=== PATIENT | male | born 1950 | race Caucasian/White ===

== ENCOUNTER 2016-08-19 16:38 | Observation (INO) | payer MEDICARE, MEDICAID, OTHER ==
[2016-08-19] MEDS ORDERED: Sodium Chloride 0.9% 2.5 ML Syringe FLUSH PRN (17:03)
[2016-08-19] MEDS ORDERED: Sodium Chloride 0.9% 10 ML Syringe FLUSH PRN (17:03)
--- NOTE | 2016-08-19 17:03 | EDM.PDOC ---
ED HISTORY OF PRESENT ILLNESS - General Chief Complaint: Respiratory Problem Stated Complaint: PT HAS DIFFICULTY BREATHING Time Seen by Provider: 08/19/16 16:58 Source of Information: Reports: Patient History Limitations: Reports: No limitations - History of Present Illness INITIAL COMMENTS - FREE TEXT/NARRATIVE: History of present illness: [] Patient was smoking with his nephew at home when he had a sudden onset of chest pain and shortness of breath. Patient recently had a pacemaker placed and has not had any problems since. Review of systems: As per history of present illness and below otherwise all systems reviewed and negative. Past medical history: As per history of present illness and as reviewed below otherwise noncontributory. Surgical history: As per history of present illness and as reviewed below otherwise noncontributory. Social history: No reported history of drug or alcohol abuse. Family history: As per history of present illness and as reviewed below otherwise noncontributory. Physical exam: General: Well developed, well nourished in NAD HEENT: Atraumatic, normocephalic, pupils reactive, negative for conjunctival pallor or scleral icterus, mucous membranes moist, throat clear, neck supple, nontender, trachea midline. Lungs: Clear to auscultation, breath sounds equal bilaterally, chest nontender. Heart: S1S2, regular, negative for clicks, rubs, or JVD. Abdomen: Soft, nondistended, nontender. Negative for masses or hepatosplenomegaly. Negative for costovertebral tenderness. Pelvis: Stable nontender. Genitourinary: Deferred. Rectal: Deferred. Extremities: Atraumatic, negative for cords or calf pain. Neurovascular unremarkable. Neuro: Awake, alert, oriented. Cranial nerves II through XII unremarkable. Cerebellum unremarkable. Motor and sensory unremarkable throughout. Exam nonfocal. Diagnostics: [] Labs, EKG and x-ray done d-dimer is elevated therefore CT angiogram was done. Therapeutics: [] Patient was given aspirin, nitroglycerin and a DuoNeb Impression: [] Acute onset of shortness of breath and chest pain Plan: [] Admit for further workup and rule out [place] Definitive disposition and diagnosis as appropriate pending reevaluation and review of above. - Related Data Allergies/ADRs: Allergies Allergy/AdvReac Type Severity Reaction Status Date / Time Penicillins Allergy Rash Verified 01/31/16 16:23 Home Meds: Home Meds ClonazePAM [KlonoPIN] 0.5 mg PO Q4H PRN 11/28/15 [History] Nitroglycerin [Nitrostat] 0.4 mg SL Q5M PRN 11/28/15 [History] Omeprazole 20 mg PO DAILY 11/28/15 [History] lamoTRIgine [Lamotrigine] 200 mg PO BID 11/28/15 [History] Albuterol Sulfate [Proair Respiclick] 2 puff IH ASDIRECTED PRN 01/31/16 [History ] Aspirin [Adult Low Dose Aspirin EC] 81 mg PO DAILY 01/31/16 [History] Hydrocodone/Acetaminophen [Hydrocodon-Acetaminophn 10-325] 1 tab PO QID PRN [History] Umeclidinium [place] [Incruse Ellipta] 1 puff IH DAILY 01/31/16 [History] atorvaSTATin [Lipitor] 20 mg PO DAILY 01/31/16 [History] Beclomethasone Dipropionate [Qvar] 1 inh IH BID 02/01/16 [History] Amantadine [Symmetrel] 100 mg PO BID 04/27/16 [History] Fluticasone Propionate [Flovent HFA 220 MCG] 0 mcg INH BID 04/27/16 [History] Docusate Sodium [Colace] 100 mg PO DAILY 08/19/16 [History] Lurasidone HCl [Latuda] 40 mg PO BID 08/19/16 [History] Tamsulosin [Flomax] 0.4 mg PO BIDPC 08/19/16 [History] Past Medical History HEENT History: Reports: None Cardiovascular History: Reports: Aneurysm, Arrhythmia, Hypertension, [place], Other ( see below) Other Cardiovascular History: prior obstructive coronary disease noted on angiogram about four years ago by patient history Respiratory History: Reports: Asthma, Other (see below) Other Respiratory History: on inhaler, but does not know why Gastrointestinal History: Reports: Other (see below) Other Gastrointestinal History: liver disease Genitourinary History: Reports: None Musculoskeletal History: Reports: Back pain, chronic, Other (see below) Other Musculoskeletal History: Chronic knee pain Neurological History: Reports: Alzheimers disease, Other (see below) Other Neuro History: being evaluated for parkinson's Psychiatric History: Reports: Anxiety, Depression Endocrine/Metabolic History: Reports: Diabetes, type II Hematologic History: Reports: None Immunologic History: Reports: None Oncologic (Cancer) History: Reports: Other (see below) Other Oncologic History: Testicular Cancer Dermatologic History: Reports: None - Infectious Disease History Infectious Disease History: Reports: None - Past Surgical History Head Surgeries/Procedures: Reports: None HEENT Surgical History: Reports: None Cardiovascular Surgical History: Reports: Coronary artery bypass GI Surgical History: Reports: None Male Surgical History: Reports: Other (see below) Other Male Surgeries/Procedures: Surgery for testicular cancer Endocrine Surgical History: Reports: None Neurological Surgical History: Reports: None Musculoskeletal Surgical History: Reports: Knee replacement Social & Family History - Family History Family Medical History: Noncontributory - Tobacco Use Smoking Status *Q: Current Every Day Smoker Years of Tobacco use: 15 Packs/Tins Daily: 0.2 Second Hand Smoke Exposure: No - Alcohol Use Days Per Week of Alcohol Use: 1 Number of Drinks Per Day: 1 Total Drinks Per Week: 1 - Recreational Drug Use Recreational Drug Use: No - Living Situation & Occupation Living situation: Reports: single, with family Occupation: disabled ED ROS GENERAL - Review of Systems Review Of Systems: See Below (See history of present illness) ED EXAM, GENERAL - Physical Exam Exam: See Below (See history of present illness) Course - Vital Signs Last Recorded V/S: Last Vital Signs Temp 36.6 C 08/20/16 04:22 Pulse 68 08/20/16 04:22 Resp 14 08/20/16 04:22 BP 102/58 L 08/20/16 04:22 Pulse Ox 96 08/20/16 04:22 - Orders/Labs/Meds Orders: Active Orders 24 hr Category Date Time Status RT Aerosol Therapy [RC] ASDIRECTED Care 08/19/16 17:07 Active CTA Chest W WO Contrast [Ang Chest] [CT] Stat Exams 08/19/16 18:01 Taken Chest 1V Frontal [CR] Stat Exams 08/19/16 17:03 Taken Sodium Chloride 0.9% [Normal Saline] 1,000 ml Med 08/19/16 18:45 Active IV ASDIRECTED Sodium Chloride 0.9% [Saline Flush] Med 08/19/16 17:03 Active 10 ml FLUSH ASDIRECTED PRN Sodium Chloride 0.9% [Saline Flush] Med 08/19/16 17:03 Active 2.5 ml FLUSH ASDIRECTED PRN Peripheral IV Insertion Adult [OM.PC] Stat Oth 08/19/16 17:03 Ordered Medication Orders Albuterol (Ventolin Hfa) 0 gm INH Q4H PRN PRN Reason: shortness of breath/wheezing Amantadine HCl (Symmetrel) 100 mg PO BID [facility] Last Admin: 08/19/16 22:22 Dose: 100 mg Atorvastatin Calcium (Lipitor) 20 mg PO DAILY [facility] Docusate Sodium (Colace) 100 mg PO DAILY [facility] Sodium Chloride (Normal Saline) 1,000 mls @ 999 mls/hr IV ASDIRECTED [facility] Last Admin: 08/19/16 19:17 Dose: 999 mls/hr Lamotrigine (Lamotrigine) 200 mg PO BID [facility] Last Admin: 08/19/16 22:22 Dose: 200 mg Nitroglycerin (Nitrostat) 0.4 mg SL Q5M PRN PRN Reason: Chest Pain Non-Formulary Medication (Beclomethasone Dipropionate [Qvar]) 1 inh IH BID [facility] Omeprazole (Omeprazole) 20 mg PO DAILY [facility] Ondansetron HCl (Zofran Odt) 4 mg PO Q4H PRN PRN Reason: nausea, able to take PO Own Medication -( Umeclidinium [place] ) 0 each INH DAILYRT [facility] Own Medication - (Latuda 80 Mg) 0 each PO BID [facility] Last Admin: 08/19/16 22:20 Dose: 1 each Sodium Chloride (Saline Flush) 10 ml FLUSH ASDIRECTED PRN PRN Reason: Keep Vein Open Last Admin: 08/19/16 17:27 Dose: 10 ml Sodium Chloride (Saline Flush) 2.5 ml FLUSH ASDIRECTED PRN PRN Reason: Keep Vein Open Last Admin: 08/19/16 17:27 Dose: 2.5 ml Tamsulosin [facility] ([facility]) [facility]: Laboratory Tests 08/19/16 08/19/16 08/19/16 Range/Units 17:14 17:14 17:14 WBC 5.16 (4.0-11.0) K/uL RBC 4.97 (4.50-5.90) M/uL Hgb 14.1 (13.0-17.0) g/dL Hct 42.9 (38.0-50.0) % MCV 86.3 (80.0-98.0) fL MCH 28.4 (27.0-32.0) pg MCHC 32.9 (31.0-37.0) g/dL RDW Std Deviation 42.7 (28.0-62.0) fl RDW Coeff of Lucero 14 (11.0-15.0) % Plt Count 127 L (150-400) K/uL MPV 8.90 (7.40-12.00) fL Neut % (Auto) 72.1 (48.0-80.0) % Lymph % (Auto) 22.9 (16.0-40.0) % [place] % (Auto) 3.1 (0.0-15.0) % Eos % (Auto) 1.7 (0.0-7.0) % Baso % (Auto) 0.2 (0.0-1.5) % Neut # 3.7 (1.4-5.7) K/uL Lymph # 1.2 (0.6-2.4) K/uL [place] # 0.2 (0.0-0.8) K/uL Eos # 0.1 (0.0-0.7) K/uL Baso # 0.0 (0.0-0.1) K/uL Nucleated RBC % 0.0 /100WBC Nucleated RBCs # 0 K/uL INR (0.86-1.11) APTT (18.6-31.3) SEC D-Dimer, Quantitative (0.0-0.52) mg/LFEU Sodium 141 (136-146) mmol/L Potassium 4.1 (3.5-5.1) mmol/L Chloride 107 (98-110) mmol/L Carbon Dioxide 20 L (21-31) mmol/L BUN 21 (6.0-23.0) mg/dL Creatinine 1.4 (0.6-1.5) mg/dL Est Cr Clr Drug Dosing 52.14 mL/min Estimated GFR (MDRD) 50.4 ml/min Glucose 143 H (60-110) mg/dL Calcium 9.9 (8.8-10.8) mg/dL Total Bilirubin 0.5 (0.1-1.5) mg/dL AST 16 (5-40) IU/L ALT 15 (8-54) IU/L Alkaline Phosphatase 115 (40-150) Troponin I < 0.10 (0.0-0.29) NG/ML B-Natriuretic Peptide (<100) PG/ML Total Protein 7.5 (6.0-8.0) g/dL Albumin 4.4 (3.4-4.8) g/dL Globulin 3.1 (2.0-3.5) g/dL Albumin/Globulin Ratio 1.4 (1.3-2.8) 08/19/16 08/19/16 08/19/16 Range/Units 17:14 17:14 17:14 WBC (4.0-11.0) K/uL RBC (4.50-5.90) M/uL Hgb (13.0-17.0) g/dL Hct (38.0-50.0) % MCV (80.0-98.0) fL MCH (27.0-32.0) pg MCHC (31.0-37.0) g/dL RDW Std Deviation (28.0-62.0) fl RDW Coeff of [place] (11.0-15.0) % Plt Count (150-400) K/uL MPV (7.40-12.00) fL Neut % (Auto) (48.0-80.0) % Lymph % (Auto) (16.0-40.0) % [place] % (Auto) (0.0-15.0) % Eos % (Auto) (0.0-7.0) % Baso % (Auto) (0.0-1.5) % Neut # (1.4-5.7) K/uL Lymph # (0.6-2.4) K/uL [place] # (0.0-0.8) K/uL Eos # (0.0-0.7) K/uL Baso # (0.0-0.1) K/uL Nucleated RBC % /100WBC Nucleated RBCs # K/uL INR 1.05 (0.86-1.11) APTT 28.0 (18.6-31.3) SEC D-Dimer, Quantitative 0.58 H (0.0-0.52) mg/LFEU Sodium (136-146) mmol/L Potassium (3.5-5.1) mmol/L Chloride (98-110) mmol/L Carbon Dioxide (21-31) mmol/L BUN (6.0-23.0) mg/dL Creatinine (0.6-1.5) mg/dL Est Cr Clr Drug Dosing mL/min Estimated GFR (MDRD) ml/min Glucose (60-110) mg/dL Calcium (8.8-10.8) mg/dL Total Bilirubin (0.1-1.5) mg/dL AST (5-40) IU/L ALT (8-54) IU/L Alkaline Phosphatase (40-150) Troponin I (0.0-0.29) NG/ML B-Natriuretic Peptide < 15 (<100) PG/ML Total Protein (6.0-8.0) g/dL Albumin (3.4-4.8) g/dL Globulin (2.0-3.5) g/dL Albumin/Globulin Ratio (1.3-2.8) Meds: Medications Generic Name Dose Route Start Last Admin Trade Name Freq PRN Reason Stop Dose Admin Albuterol 0 gm 08/19/16 21:07 Ventolin Hfa INH Q4H PRN shortness of breath/wheezing Amantadine HCl 100 mg 08/19/16 21:00 08/19/16 22:22 Symmetrel PO 100 mg BID ISAIAH Administration Atorvastatin Calcium 20 mg 08/20/16 09:00 Lipitor PO DAILY [facility] Docusate Sodium 100 mg 08/20/16 09:00 Colace PO DAILY [facility] Sodium Chloride 1,000 mls @ 999 mls/hr 08/19/16 18:45 08/19/16 19:17 Normal Saline IV 999 mls/hr ASDIRECTED ISAIAH Administration Lamotrigine 200 mg 08/19/16 21:00 08/19/16 22:22 Lamotrigine PO 200 mg BID ISAIAH Administration Nitroglycerin 0.4 mg 08/19/16 20:47 Nitrostat SL Q5M PRN Chest Pain Non-Formulary Medication 1 inh 08/19/16 21:00 Beclomethasone Dipropionate [Qvar] IH BID [facility] Omeprazole 20 mg 08/20/16 09:00 Omeprazole PO DAILY [facility] Ondansetron HCl 4 mg 08/19/16 20:49 Zofran Odt PO Q4H PRN nausea, able to take PO Own Medication -( 0 each 08/20/16 06:00 Umeclidinium [place] INH ) DAILYRT ISAIAH Own Medication - 0 each 08/19/16 22:00 08/19/16 22:20 Latuda 80 Mg PO 1 each BID ISAIAH Administration Sodium Chloride 10 ml 08/19/16 17:03 08/19/16 17:27 Saline Flush FLUSH 10 ml ASDIRECTED PRN Administration Keep Vein Open Sodium Chloride 2.5 ml 08/19/16 17:03 08/19/16 17:27 Saline Flush FLUSH 2.5 ml ASDIRECTED PRN Administration Keep Vein Open Tamsulosin HCl 0.4 mg 08/20/16 08:30 Flomax PO BIDPC ISAIAH Discontinued Medications Generic Name Dose Route Start Last Admin Trade Name Freq PRN Reason Stop Dose Admin Albuterol/Ipratropium 3 ml 08/19/16 17:07 08/19/16 17:20 Duoneb 3.0-0.5 Mg/3 Ml NEB 08/19/16 17:08 3 ml ONETIME ONE Administration Aspirin 324 mg 08/19/16 17:06 08/19/16 17:26 Aspirin PO 08/19/16 17:07 324 mg ONETIME ONE Administration Iodixanol 50 ml 08/19/16 18:44 08/19/16 18:44 Visipaque 320 IVPUSH 08/19/16 18:45 50 ml ONETIME STA Administration Nitroglycerin 0.4 mg 08/19/16 17:06 08/19/16 17:26 Nitrostat SL 08/19/16 17:17 0.4 mg Q5M PRN Administration Chest Pain Departure - Departure Time of Disposition: 05:00 Disposition: Admitted As Inpatient 64 Condition: good Clinical Impression: COPD (chronic obstructive pulmonary disease) Qualifiers: COPD type: COPD with acute exacerbation Qualified Code(s): J44.1 - Chronic obstructive pulmonary disease with (acute) exacerbation Chest pain Qualifiers: Chest pain type: unspecified Qualified Code(s): R07.9 - Chest pain, unspecified - My Orders Last 24 Hours: My Active Orders 08/19/16 17:03 Chest 1V Frontal [CR] Stat Sodium Chloride 0.9% [Saline Flush] 10 ml FLUSH ASDIRECTED PRN Sodium Chloride 0.9% [Saline Flush] 2.5 ml FLUSH ASDIRECTED PRN Peripheral IV Insertion Adult [OM.PC] Stat 08/19/16 17:07 RT Aerosol Therapy [RC] ASDIRECTED 08/19/16 18:01 CTA Chest W WO Contrast [Ang Chest] [CT] Stat 08/19/16 18:45 Sodium Chloride 0.9% [Normal Saline] 1,000 ml IV ASDIRECTED - Assessment/Plan Last 24 Hours: My Active Orders 08/19/16 17:03 Chest 1V Frontal [CR] Stat Sodium Chloride 0.9% [Saline Flush] 10 ml FLUSH ASDIRECTED PRN Sodium Chloride 0.9% [Saline Flush] 2.5 ml FLUSH ASDIRECTED PRN Peripheral IV Insertion Adult [OM.PC] Stat 08/19/16 17:07 RT Aerosol Therapy [RC] ASDIRECTED 08/19/16 18:01 CTA Chest W WO Contrast [Ang Chest] [CT] Stat 08/19/16 18:45 Sodium Chloride 0.9% [Normal Saline] 1,000 ml IV ASDIRECTED
[2016-08-19] MEDS ORDERED: Nitroglycerin 0.4 MG Tab.SL SL PRN ×2 (17:06→20:47)
[2016-08-19] MEDS ORDERED: Aspirin 81 MG Tab.Chew PO ONE (17:06)
[2016-08-19] MEDS ORDERED: Albuterol/Ipratropium 3.0-0.5 MG/3 ML Neb Soln NEB ONE (17:07)
[2016-08-19] MEDS ORDERED: Iodixanol 652 MG/ML 50 ML Vial IVPUSH STA (18:44)
[2016-08-19] MEDS ORDERED: Sodium Chloride 0.9% 1,000 ML IV SCH (18:45)
[2016-08-19] MEDS ORDERED: Ondansetron 4 MG Tab.DIS PO PRN (20:49)
--- NOTE | 2016-08-19 20:57 | PCM.HP ---
H&P History of Present Illness - General Admit Problem/Dx: Admission Diagnosis/Problem Admission Diagnosis/Problem Chest pain - History of Present Illness Initial Comments - Free Text/Narative: 66 yo male with pmh of CAD, COPD, arrhythmia with pacemaker, and ascending aortic aneurysm who presented with acute onset of chest pain. He describes it as substernal radiated to the jaw with associated shortness of breath. HE received nitro, ASA, O2 via NC and duonebs in the ED with resolution of his symptoms. Due to elevated D-dimer CT scan of chest was taken which showed no pulmonary embolism, ascending aortic aneurysm measuring 4.7 cm. chest Pain Score (Numeric/FACES): 9 - Related Data Allergies/Adverse Reactions: Allergies Allergy/AdvReac Type Severity Reaction Status Date / Time Penicillins Allergy Rash Verified 01/31/16 16:23 Home Medications: Home Meds ClonazePAM [KlonoPIN] 0.5 mg PO Q4H PRN 11/28/15 [History] Nitroglycerin [Nitrostat] 0.4 mg SL Q5M PRN 11/28/15 [History] Omeprazole 20 mg PO DAILY 11/28/15 [History] Albuterol Sulfate [Proair Respiclick] 2 puff IH Q4H PRN 01/31/16 [History] Aspirin [Adult Low Dose Aspirin EC] 81 mg PO DAILY 01/31/16 [History] Hydrocodone/Acetaminophen [Hydrocodon-Acetaminophn 10-325] 1 tab PO QID PRN [History] Umeclidinium [place] [Incruse Ellipta] 1 puff IH DAILY 01/31/16 [History] atorvaSTATin [Lipitor] 20 mg PO BEDTIME 01/31/16 [History] Amantadine [Symmetrel] 100 mg PO BID 04/27/16 [History] Fluticasone Propionate [Flovent HFA 220 MCG] 2 inh INH BID 04/27/16 [History] Docusate Sodium [Colace] 100 mg PO DAILY 08/19/16 [History] Lurasidone HCl [Latuda] 40 mg PO BID 08/19/16 [History] Tamsulosin [Flomax] 0.4 mg PO BIDPC 08/19/16 [History] Past Medical History - Past Health History Medical/Surgical History: Denies Medical/Surgical History HEENT History: Reports: None Cardiovascular History: Reports: Aneurysm, Arrhythmia, Hypertension, [place], Other ( see below) Other Cardiovascular History: prior obstructive coronary disease noted on angiogram about four years ago by patient history Respiratory History: Reports: Asthma, Other (see below) Other Respiratory History: on inhaler, but does not know why Gastrointestinal History: Reports: Other (see below) Other Gastrointestinal History: liver disease Genitourinary History: Reports: None Musculoskeletal History: Reports: Back pain, chronic, Other (see below) Other Musculoskeletal History: Chronic knee pain Neurological History: Reports: Alzheimers disease, Other (see below) Other Neuro History: being evaluated for parkinson's Psychiatric History: Reports: Anxiety, Depression Endocrine/Metabolic History: Reports: Diabetes, type II Hematologic History: Reports: None Immunologic History: Reports: None Oncologic (Cancer) History: Reports: Other (see below) Other Oncologic History: Testicular Cancer Dermatologic History: Reports: None - Infectious Disease History Infectious Disease History: Reports: None - Past Surgical History Head Surgeries/Procedures: Reports: None HEENT Surgical History: Reports: None Cardiovascular Surgical History: Reports: Coronary artery bypass GI Surgical History: Reports: None Male Surgical History: Reports: Other (see below) Other Male Surgeries/Procedures: Surgery for testicular cancer Endocrine Surgical History: Reports: None Neurological Surgical History: Reports: None Musculoskeletal Surgical History: Reports: Knee replacement Social & Family History - Family History Family Medical History: Noncontributory - Tobacco Use Smoking Status *Q: Current Every Day Smoker Years of Tobacco use: 15 Packs/Tins Daily: 0.2 Second Hand Smoke Exposure: No - Caffeine Use Caffeine Use: Reports: Coffee - Alcohol Use Days Per Week of Alcohol Use: 1 Number of Drinks Per Day: 1 Total Drinks Per Week: 1 - Recreational Drug Use Recreational Drug Use: No - Living Situation & Occupation Living situation: Reports: single, with family Occupation: disabled H&P Review of Systems - Review of Systems: Review Of Systems: See Below General: Reports: no symptoms HEENT: Reports: no symptoms Pulmonary: Reports: no symptoms Cardiovascular: Reports: no symptoms Gastrointestinal: Reports: No symptoms Genitourinary: Reports: no symptoms Musculoskeletal: Reports: no symptoms Skin: Reports: no symptoms Psychiatric: Reports: no symptoms Neurological: Reports: no symptoms Hematologic/Lymphatic: Reports: no symptoms Immunologic: Reports: no symptoms Exam - Exam Exam: See Below - Vital Signs Vital Signs: Last Vital Signs Temp 36.4 C 08/19/16 16:50 Pulse 69 08/19/16 19:19 Resp 17 08/19/16 19:19 BP 108/60 08/19/16 19:19 Pulse Ox 98 08/19/16 19:19 Weight: 101.151 kg - Exam General: alert, oriented Neck: supple, trachea midline, 2 Lungs: Clear to auscultation, Normal respiratory effort Cardiovascular: regular rate, regular rhythm. No: systolic murmur, diastolic murmur Abdomen: normal bowel sounds, soft Extremities: normal inspection Skin: warm, dry, intact Neurological: No: focal deficit - Patient Data Result Diagrams: 08/19/16 17:14 08/20/16 06:29 EKG INTERPRETATION Rate (beats/min): 82 QRS: RBBB *Q Meaningful Use (ADM) - VTE *Q VTE Criteria *Q: - Stroke *Q Stroke Criteria *Q: - AMI *Q AMI Criteria *Q: Problem List Initiated/Reviewed/Updated: Yes Orders Last 24hrs: Active Orders 24 hr Category Date Time Status TROPONIN I [CHEM] Q6H Lab 08/19/16 23:00 Ordered TROPONIN I [CHEM] Q6H Lab 08/20/16 05:00 Ordered Albuterol Sulfate [Proair Respiclick] Med 08/19/16 20:47 Ordered 2 puff IH ASDIRECTED PRN Amantadine [Symmetrel] Med 08/19/16 21:00 Ordered 100 mg PO BID Beclomethasone Dipropionate [Qvar] Med 08/19/16 21:00 Ordered 1 inh IH BID Docusate Sodium [Colace] Med 08/20/16 09:00 Ordered 100 mg PO DAILY Lurasidone HCl [Latuda] Med 08/19/16 21:00 Ordered 40 mg PO BID Nitroglycerin [Nitrostat] Med 08/19/16 20:47 Ordered 0.4 mg SL Q5M PRN Omeprazole Med 08/20/16 09:00 Ordered 20 mg PO DAILY Tamsulosin [Flomax] Med 08/20/16 08:30 Ordered 0.4 mg PO BIDPC Umeclidinium [place] Med 08/20/16 09:00 Ordered 1 puff IH DAILY atorvaSTATin [Lipitor] Med 08/20/16 09:00 Ordered 20 mg PO DAILY lamoTRIgine Med 08/19/16 21:00 Ordered 200 mg PO BID Medication Orders Amantadine HCl (Symmetrel) 100 mg PO BID [facility] Atorvastatin Calcium (Lipitor) 20 mg PO DAILY [facility] Docusate Sodium (Colace) 100 mg PO DAILY [facility] Sodium Chloride (Normal Saline) 1,000 mls @ 999 mls/hr IV ASDIRECTED [facility] Last Admin: 08/19/16 19:17 Dose: 999 mls/hr Lamotrigine (Lamotrigine) 200 mg PO BID [facility] Nitroglycerin (Nitrostat) 0.4 mg SL Q5M PRN PRN Reason: Chest Pain Non-Formulary Medication (Lurasidone Hcl [Latuda]) 40 mg PO BID [facility] Non-Formulary Medication (Umeclidinium [place]) 1 puff IH DAILY [facility] Non-Formulary Medication (Beclomethasone Dipropionate [Qvar]) 1 inh IH BID [facility] Non-Formulary Medication (Albuterol Sulfate [Proair Respiclick]) 2 puff IH ASDIRECTED PRN PRN Reason: shortness of breath/wheezing Omeprazole (Omeprazole) 20 mg PO DAILY [facility] Sodium Chloride (Saline Flush) 10 ml FLUSH ASDIRECTED PRN PRN Reason: Keep Vein Open Last Admin: 08/19/16 17:27 Dose: 10 ml Sodium Chloride (Saline Flush) 2.5 ml FLUSH ASDIRECTED PRN PRN Reason: Keep Vein Open Last Admin: 08/19/16 17:27 Dose: 2.5 ml Tamsulosin [facility] ([facility]omax) [facility] Assessment/Plan Comment:: 66 yo male admitted for chest pain. Will rule out for acute coronary syndrome.
[2016-08-19] MEDS ORDERED: BECLOMETHASONE DIPROPIONATE INH SCH (21:00)
[2016-08-19] MEDS ORDERED: Albuterol 8 GM Inhaler INH PRN (21:07)
[2016-08-19] MEDS ORDERED: LATUDA 40 MG PO SCH (21:15)
[2016-08-19] MEDS: LATUDA 80 MG PO SCH (22:20)
[2016-08-19] MEDS: lamoTRIgine 100 MG Tab PO SCH (22:22)
[2016-08-19] MEDS: Amantadine 100 MG Cap PO SCH (22:22)
[2016-08-20] MEDS ORDERED: INCRUSE ELLIPTA INH SCH (06:00)
[2016-08-20 07:04] LABS: CHLORIDE,CL 110 mmol/L (98-110); SODIUM,NA 142 mmol/L (136-146)
[2016-08-20] MEDS: Amantadine 100 MG Cap PO SCH (08:07)
[2016-08-20] MEDS: LATUDA 80 MG PO SCH (08:07)
[2016-08-20] MEDS ORDERED: ClonazePAM 0.5 MG Tab PO PRN (08:07)
[2016-08-20] MEDS ORDERED: Acetaminophen/HYDROcodone 325-10 MG Tab PO PRN (08:07)
[2016-08-20] MEDS: lamoTRIgine 100 MG Tab PO SCH (08:07)
[2016-08-20] MEDS ORDERED: Tamsulosin 0.4 MG Cap.ER PO SCH (08:30)
[2016-08-20] MEDS ORDERED: Omeprazole 20 MG Cap.CR PO SCH (09:00)
[2016-08-20] MEDS ORDERED: Docusate Sodium 100 MG Cap PO SCH (09:00)
[2016-08-20] MEDS ORDERED: Fluticasone Propionate 220 MCG/Puff 12 GM Inhaler INH SCH (09:00)
[2016-08-20] MEDS ORDERED: atorvaSTATin 20 MG Tab PO SCH (09:00)
[2016-08-20] MEDS ORDERED: Aspirin 81 MG Tab.EC PO SCH (09:00)
--- NOTE | 2016-08-20 11:35 | PCM.PN ---
- General Info Date of Service: 08/20/16 Admission Dx/Problem (Free Text): Admission Diagnosis/Problem Admission Diagnosis/Problem Chest pain Subjective Update: Doing well this morning. Has no more complaints of chest pain or SOB. Has no complaints. Did consult Dr. Aguilar regarding admission. Functional Status: Reports: pain controlled, tolerating diet, ambulating, urinating - Review of Systems General: Reports: no symptoms. Denies: fever Pulmonary: Reports: no symptoms. Denies: shortness of breath Cardiovascular: Reports: no symptoms. Denies: chest pain, palpitations Gastrointestinal: Reports: No symptoms. Denies: Abdominal pain, Nausea, Vomiting Genitourinary: Reports: no symptoms - Patient Data Vitals - most recent: Last Vital Signs Temp 97.2 F 08/20/16 08:00 Pulse 62 08/20/16 08:00 Resp 16 08/20/16 08:00 BP 110/60 08/20/16 08:00 Pulse Ox 97 08/20/16 08:00 Weight - most recent: 101.151 kg I&O - last 24 hours: Intake & Output 08/19/16 08/20/16 08/20/16 22:59 06:59 14:59 Intake Total 440 Output Total 1050 Balance -610 Lab Results last 24 hrs: Laboratory Results - last 24 hr 08/19/16 08/20/16 08/20/16 Range/Units 23:05 06:29 06:29 Sodium 142 (136-146) mmol/L Potassium 4.3 (3.5-5.1) mmol/L Chloride 110 (98-110) mmol/L Carbon Dioxide 22 (21-31) mmol/L BUN 16 (6.0-23.0) mg/dL Creatinine 1.1 (0.6-1.5) mg/dL Est Cr Clr Drug Dosing 68.45 mL/min Estimated GFR (MDRD) > 60.0 ml/min Glucose 96 (60-110) mg/dL Calcium 8.8 (8.8-10.8) mg/dL Troponin I < 0.10 < 0.10 (0.0-0.29) NG/ML Med Orders - Current: Current Medications Acetaminophen/Hydrocodone Bitart ([place] 325-10 Mg) 1 tab PO QID PRN PRN Reason: Pain Albuterol (Ventolin Hfa) 0 gm INH Q4H PRN PRN Reason: shortness of breath/wheezing Amantadine HCl (Symmetrel) 100 mg PO BID [facility] Last Admin: 08/20/16 08:07 Dose: 100 mg Aspirin (Halfprin) 81 mg PO DAILY [facility] Last Admin: 08/20/16 08:38 Dose: 81 mg Atorvastatin Calcium (Lipitor) 20 mg PO DAILY [facility] Last Admin: 08/20/16 08:07 Dose: 20 mg Clonazepam (Klonopin) 0.5 mg PO Q4H PRN PRN Reason: Anxiety Docusate Sodium (Colace) 100 mg PO DAILY [facility] Last Admin: 08/20/16 08:07 Dose: 100 mg Fluticasone Propionate (Flovent Hfa 220 Mcg) 0 gm INH BIDRT [facility] Last Admin: 08/20/16 08:19 Dose: 1 puff Sodium Chloride (Normal Saline) 1,000 mls @ 999 mls/hr IV ASDIRECTED [facility] Last Admin: 08/19/16 19:17 Dose: 999 mls/hr Nitroglycerin (Nitrostat) 0.4 mg SL Q5M PRN PRN Reason: Chest Pain Omeprazole (Omeprazole) 20 mg PO DAILY [facility] Last Admin: 08/20/16 08:07 Dose: 20 mg Ondansetron HCl (Zofran Odt) 4 mg PO Q4H PRN PRN Reason: nausea, able to take PO Incruse Ellipta ( Umeclidinium [place] ) 0 each INH DAILYRT [facility] Last Admin: 08/20/16 07:29 Dose: Not Given Own Medication - (Latuda 80 Mg) 0 each PO BID [facility] Last Admin: 08/20/16 08:07 Dose: 40 each Sodium Chloride (Saline Flush) 10 ml FLUSH ASDIRECTED PRN PRN Reason: Keep Vein Open Last Admin: 08/19/16 17:27 Dose: 10 ml Sodium Chloride (Saline Flush) 2.5 ml FLUSH ASDIRECTED PRN PRN Reason: Keep Vein Open Last Admin: 08/19/16 17:27 Dose: 2.5 ml Tamsulosin HCl (Flomax) [facility] [facility] Last Admin: 08/20/16 08:07 Dose: 0.4 mg Discontinued Medications Albuterol/Ipratropium (Duoneb 3.0-0.5 Mg/3 Ml) 3 ml NEB ONETIME ONE Stop: 08/19/16 17:08 Last Admin: 08/19/16 17:20 Dose: 3 ml Aspirin (Aspirin) 324 mg PO ONETIME ONE Stop: 08/19/16 17:07 Last Admin: 08/19/16 17:26 Dose: 324 mg Iodixanol (Visipaque 320) 50 ml IVPUSH ONETIME STA Stop: 08/19/16 18:45 Last Admin: 08/19/16 18:44 Dose: 50 ml Lamotrigine (Lamotrigine) 200 mg PO BID [facility] Last Admin: 08/20/16 08:07 Dose: 200 mg Nitroglycerin (Nitrostat) 0.4 mg SL Q5M PRN PRN Reason: Chest Pain Stop: 08/19/16 17:17 Last Admin: 08/19/16 17:26 Dose: 0.4 mg Beclomethasone Dipropionate [Qvar] 1 Inh 1 each INH BID [facility] Last Admin: 08/20/16 07:28 Dose: Not Given - Exam General: alert, oriented, cooperative Lungs: Clear to auscultation, Normal respiratory effort. No: Crackles, Rhonchi , Wheezing Cardiovascular: regular rate, regular rhythm. No: no murmurs Abdomen: bowel sounds present, soft, no tenderness, no distension Extremities: no edema, normal pulses Psy/Mental Status: alert, normal affect, normal mood - Problem List & Annotations (1) Chest pain SNOMED Code(s): 92670794 Code(s): R07.9 - CHEST PAIN, UNSPECIFIED Status: Acute Current Visit: Yes Qualifiers: Chest pain type: unspecified Qualified Code(s): R07.9 - Chest pain, unspecified (2) Pacemaker SNOMED Code(s): 046831439, 527147311 Code(s): Z95.0 - PRESENCE OF CARDIAC PACEMAKER Status: Chronic Current Visit: Yes Annotation/Comment:: placed 07/18/2016 (3) COPD (chronic obstructive pulmonary disease) SNOMED Code(s): 69250933 Code(s): J44.9 - CHRONIC OBSTRUCTIVE PULMONARY DISEASE, UNSPECIFIED Status : Chronic Current Visit: Yes Qualifiers: COPD type: unspecified COPD Qualified Code(s): J44.9 - Chronic obstructive pulmonary disease, unspecified (4) CAD (coronary artery disease) SNOMED Code(s): 28363643 Code(s): I25.10 - ATHSCL HEART DISEASE OF [place] CORONARY ARTERY W/O ANG PCTRS Status: Chronic Current Visit: No - Problem List Review Problem List Initiated/Reviewed/Updated: Yes - My Orders Last 24 Hours: My Active Orders 08/20/16 08:05 Consult to Physician [CONS] Routine 08/20/16 08:06 Notify Provider Consults [RC] ASDIRECTED 08/20/16 08:07 Acetaminophen/HYDROcodone [[place] 325-10 MG] 1 tab PO QID PRN ClonazePAM [KlonoPIN] 0.5 mg PO Q4H PRN 08/20/16 09:00 Aspirin [Halfprin] 81 mg PO DAILY Fluticasone Propionate [Flovent HFA 220 MCG] 0 gm INH BIDRT - Plan Plan:: 66 yo male admitted for chest pain. 1. Chest pain: Troponins negative. Did note ascending aortic aneurysm has increased in size since December 2015(4.4 to 4.7 now). Potential cause for pain? Newly placed pacemaker, 07/18/2016. Will consult Dr. Aguilar, Cardiology for further recommendations. 2. COPD: Could be cause of some SOB on admission. Feeling better now, restarted inhalers. 3. CAD: Continue ASA and Atrovastatin. VTE: SCDs Dispo: pending recommendations for Dr. Aguilar.
--- NOTE | 2016-08-20 11:43 | PCM.CONS ---
<Lori Patel - Last Filed: 08/21/16 10:25> H&P History of Present Illness - General Date of Service: 08/20/16 (3095) Admit Problem/Dx: Admission Diagnosis/Problem Admission Diagnosis/Problem Chest pain Source of Information: Patient History Limitations: Reports: No limitations - History of Present Illness Initial Comments - Free Text/Narative: 66 year old male with pmh of CAD, COPD, arrhythmia with pacemaker placed on , and ascending aortic aneurysm who presented to the ED with acute onset of SOB with jaw and chest pain. According to patient he had just walked back into the house from the shop with his nephew a distance of about 50 feet, when he suddenly developed SOB that progressively got worse (with no relief even with use of rescue inhaler) to the point of gasping for air. He also voices substernal chest pain which radiated to his right shoulder blade and jaw pain ( which was worse on the left more than the right which made it difficult to speak ). He describes pain as dull, constant stabbing pain 9/10 on pain scale. He voices symptoms lasted for about 3-4hours. In the ED he was given Nitro, ASA, oxygen via NC and duoneb treatments which resolved his symptoms. His serial troponin were negative, but his D-dimer was elevated at 0.58, thus CT scan of chest done due to elevated d-dimeer which showed no PE, but did show ascending aortic aneurysm measuring 4.7cm (measured 4.4cm in December 2015). EKG showed no ST segment changes but showed RBBB. CXR was normal. Admitted to inpatient status for further workup to rule out ACS. Symptom Onset Date: 08/19/16 Duration of Symptoms: Reports: Hour(s): (lasted about 3-4 hours), Constant, Getting worse Location: Reports: chest Quality: Reports: Dull, Stabbing Improves with: Reports: None Worsens with: Reports: None Associated Symptoms: Reports: chest pain (9/10 in ER pain is 3/10 now with movement pain is mainly in his back and knees), shortness of breath chest Pain Score (Numeric/FACES): 3 (back and knee pain with movement rated as 3 denies chest pain or SOB.) - Related Data Allergies/Adverse Reactions: Allergies Allergy/AdvReac Type Severity Reaction Status Date / Time Penicillins Allergy Rash Verified 01/31/16 16:23 Home Medications: Home Meds ClonazePAM [KlonoPIN] 0.5 mg PO Q4H PRN 11/28/15 [History] Nitroglycerin [Nitrostat] 0.4 mg SL Q5M PRN 11/28/15 [History] Omeprazole 20 mg PO DAILY 11/28/15 [History] Albuterol Sulfate [Proair Respiclick] 2 puff IH Q4H PRN 01/31/16 [History] Aspirin [Adult Low Dose Aspirin EC] 81 mg PO DAILY 01/31/16 [History] Hydrocodone/Acetaminophen [Hydrocodon-Acetaminophn 10-325] 1 tab PO QID PRN [History] Umeclidinium [place] [Incruse Ellipta] 1 puff IH DAILY 01/31/16 [History] atorvaSTATin [Lipitor] 20 mg PO BEDTIME 01/31/16 [History] Amantadine [Symmetrel] 100 mg PO BID 04/27/16 [History] Fluticasone Propionate [Flovent HFA 220 MCG] 2 inh INH BID 04/27/16 [History] Docusate Sodium [Colace] 100 mg PO DAILY 08/19/16 [History] Lurasidone HCl [Latuda] 40 mg PO BID 08/19/16 [History] Tamsulosin [Flomax] 0.4 mg PO BIDPC 08/19/16 [History] Past Medical History - Past Health History Medical/Surgical History: Denies Medical/Surgical History HEENT History: Reports: None Cardiovascular History: Reports: Aneurysm, Arrhythmia, Hypertension, RI, Other ( see below) Other Cardiovascular History: prior obstructive coronary disease noted on angiogram about four years ago by patient history Respiratory History: Reports: Asthma, Other (see below) Other Respiratory History: on inhaler, but does not know why Gastrointestinal History: Reports: Other (see below) Other Gastrointestinal History: liver disease Genitourinary History: Reports: None Musculoskeletal History: Reports: Back pain, chronic, Other (see below) Other Musculoskeletal History: Chronic knee pain Neurological History: Reports: Alzheimers disease, Other (see below) Other Neuro History: being evaluated for parkinson's Psychiatric History: Reports: Anxiety, Depression Endocrine/Metabolic History: Reports: Diabetes, type II Hematologic History: Reports: None Immunologic History: Reports: None Oncologic (Cancer) History: Reports: Other (see below) Other Oncologic History: Testicular Cancer Dermatologic History: Reports: None - Infectious Disease History Infectious Disease History: Reports: None - Past Surgical History Head Surgeries/Procedures: Reports: None HEENT Surgical History: Reports: None Cardiovascular Surgical History: Reports: Coronary artery bypass GI Surgical History: Reports: None Male Surgical History: Reports: Other (see below) Other Male Surgeries/Procedures: Surgery for testicular cancer Endocrine Surgical History: Reports: None Neurological Surgical History: Reports: None Musculoskeletal Surgical History: Reports: Knee replacement Social & Family History - Family History Family Medical History: Noncontributory - Tobacco Use Smoking Status *Q: Current Every Day Smoker Years of Tobacco use: 15 Packs/Tins Daily: 0.2 Second Hand Smoke Exposure: No - Caffeine Use Caffeine Use: Reports: Coffee - Alcohol Use Days Per Week of Alcohol Use: 1 Number of Drinks Per Day: 1 Total Drinks Per Week: 1 - Recreational Drug Use Recreational Drug Use: No - Living Situation & Occupation Living situation: Reports: single, with family Occupation: disabled H&P Review of Systems - Review of Systems: Review Of Systems: See Below General: Reports: weakness, fatigue, other (was cold and clammy with episode of SOB and chest pain). Denies: fever, chills, malaise, decreased appetite, weight loss, weight gain HEENT: Reports: glasses (wears prescription glasses which is currently broken, has readers at bedside ), headaches (denies headache or pressure but voices head felt "weird inside"), other (head hurt but not headache). Denies: sore throat, visual changes Pulmonary: Reports: Shortness of Breath Cardiovascular: Reports: chest pain, lightheadedness Gastrointestinal: Denies: Abdominal pain, Nausea, Vomiting Genitourinary: Denies: dysuria, frequency, burning, urgency Musculoskeletal: Reports: shoulder pain (right shoulder blade pain on 08/19/16) Skin: Denies: cyanosis, pallor, diaphoresis, bruising, erythema Psychiatric: Reports: anxiety (history of anxiety has medication for it) Neurological: Reports: Weakness. Denies: Dizziness, Numbness, Tingling Hematologic/Lymphatic: Reports: no symptoms Immunologic: Reports: no symptoms Exam - Exam Exam: See Below - Vital Signs Vital Signs: Last Vital Signs Temp 36.2 C 08/20/16 08:00 Pulse 62 08/20/16 08:00 Resp 16 08/20/16 08:00 BP 110/60 08/20/16 08:00 Pulse Ox 97 08/20/16 08:00 Weight: 101.151 kg - Exam General: alert, oriented, cooperative HEENT: Conjunctiva clear, Mucosa moist & pink, Posterior pharynx clear, Pupils equal, Pupils reactive, TMs clear, PERRLA Neck: supple, trachea midline, full range of motion. No: lymphadenopathy, JVD Lungs: Clear to auscultation, Normal respiratory effort. No: Crackles, Rhonchi , Wheezing Cardiovascular: regular rate, regular rhythm Abdomen: normal bowel sounds, soft, tenderness (tenderness with palpation in mid epigastric region). No: distention, guarding, rigidity, rebound, hernia, mass (Male) Exam: Deferred Rectal (Males) Exam: Deferred Back Exam: normal inspection, full range of motion Extremities: normal pulses. No: clubbing, cyanosis, calf tenderness, edema, increased warmth Skin: warm, dry, intact Neurological: strength equal bilateral, normal speech, normal tone, sensation intact Neuro Extensive - Mental Status: alert, oriented x3, normal mood/affect, normal cognition, memory intact Neuro Extensive - Motor, Sensory, Reflexes: normal gait Psychiatric: alert, normal affect, normal mood - Patient Data Lab Results last 24 hrs: Laboratory Results - last 24 hr 08/19/16 08/20/16 08/20/16 Range/Units 23:05 06:29 06:29 Sodium 142 (136-146) mmol/L Potassium 4.3 (3.5-5.1) mmol/L Chloride 110 (98-110) mmol/L Carbon Dioxide 22 (21-31) mmol/L BUN 16 (6.0-23.0) mg/dL Creatinine 1.1 (0.6-1.5) mg/dL Est Cr Clr Drug Dosing 68.45 mL/min Estimated GFR (MDRD) > 60.0 ml/min Glucose 96 (60-110) mg/dL Calcium 8.8 (8.8-10.8) mg/dL Troponin I < 0.10 < 0.10 (0.0-0.29) NG/ML Result Diagrams: 08/19/16 17:14 08/20/16 06:29 Consult PN Assessment/Plan Procedures: Procedures AIRWAY INHALATION TREATMENT (01/31/16) ASSAY OF AMYLASE (12/30/15) ASSAY OF FOLIC ACID SERUM (01/31/16) ASSAY OF LIPASE (12/30/15) ASSAY OF MAGNESIUM (01/31/16) ASSAY OF PHOSPHORUS (01/31/16) ASSAY OF TROPONIN QUANT (01/05/16) ASSAY THYROID STIM HORMONE (01/31/16) CHEST X-RAY 1 VIEW FRONTAL (12/30/15) CHEST X-RAY 2VW FRONTAL&LATL (04/27/16) COMPLETE CBC W/AUTO DIFF WBC (04/27/16) COMPREHEN METABOLIC PANEL (04/27/16) CT ABD & PELV W/CONTRAST (12/30/15) CT HEAD/BRAIN W/O DYE (01/31/16) CT THORAX W/DYE (12/30/15) DRAIN/INJ JOINT/BURSA W/O US (04/24/16) ELECTROCARDIOGRAM TRACING (02/08/16) EMERGENCY DEPT VISIT (04/27/16) EMERGENCY DEPT VISIT (01/31/16) EVALUATE PT USE OF INHALER (04/27/16) EXTRACRANIAL BILAT STUDY (01/31/16) GLUCOSE BLOOD TEST (01/31/16) HYDRATE IV INFUSION ADD-ON (12/30/15) HYDRATION IV INFUSION INIT (12/30/15) LIPID PANEL (01/31/16) METABOLIC PANEL TOTAL CA (01/31/16) MRI BRAIN STEM W/O & W/DYE (01/31/16) MRI LUMBAR SPINE W/O & W/DYE (01/31/16) OFFICE/OUTPATIENT VISIT NEW (04/24/16) OFFICE/OUTPATIENT VISIT NEW (04/24/16) PROTHROMBIN TIME (01/31/16) PT EVALUATION (04/04/16) ROUTINE VENIPUNCTURE (04/27/16) THERAPEUTIC EXERCISES (05/02/16) TTE W/DOPPLER COMPLETE (01/31/16) URINALYSIS AUTO W/SCOPE (01/31/16) VITAMIN B-12 (01/31/16) X-RAY EXAM KNEE 4 OR MORE (04/24/16) (1) Chest pain SNOMED Code(s): 22263530 Code(s): R07.9 - CHEST PAIN, UNSPECIFIED Qualifiers: Chest pain type: unspecified Qualified Code(s): R07.9 - Chest pain, unspecified Assessment:: This is a 66 year old male who presented to the ED with acute onset SOB and chest pain that started on Saturday08-19-16. He has a PMH of CAD, COPD, arrhythmia with pacemaker placed on 07/18/16, and ascending aortic aneurysm. He voices SOB got progressively worse and was unrelieved by rescue inhaler Flovent. Denies abdominal pain, and nausea or vomiting. In the ED he was given Nitro, ASA, oxygen via NC and duoneb treatments which resolved his symptoms. Serial troponins were negative, but his D-dimer was elevated at 0.58, thus CT scan of chest was done which showed no PE, but did show ascending aortic aneurysm measuring 4.7cm (measured 4.4cm in December 2015). EKG showed no ST segment changes but showed RBBB. CXR was normal. Admitted to inpatient status for further workup to rule out ACS. Patient on cardiac monitoring on admission. Vitals temp-36.2, Pulse-76 regular, BP-110/60, RR-16, O2-97%RA 1. Chest pain His symptoms of chest and jaw pain and SOB were resolved after Nitro, ASA, Oxygen via NC, and duoneb treatment in ED. Pain was described as dull, constant stabbing pain in the substernal area with radiation to jaw and right shoulder which may suggest ACS, which was ruled out with CT of chest, serial negative troponins and resolution of symptoms with administration of Nitro in ED. CT of chest showed no PE but ascending aortic aneurysm measuring 4.7cm. EKG showed no ST segment changes but RBBB. CXR showed no inflitrates or pleural effusion, and with no current respiratory infection ruling out pulmonary cause of chest pain. Chest pain was not GI in nature due to symptoms described. Patient is currently denying chest pain and feels much better today. Recommendation is to followup in clinic for further workup with stress test and based on results followup with cardiac angiography. 2. Ascending aortic Aneurysm Aneurysm measured 4.4cm in December of 2015 measures 4.7cm on 08-19-16. Life style modification including smoking cessation is very important in managing aneurysms. Patient is current 1 pack/day smoker discussed with him the importance of smoking cessation as smoking increases aneursym formation and expansion, patient was very receptive, has been using a nicotine patch since admission and has information for [email or web address]. Also statin use is recommended to decrease LDL to goal. Patient is currently on Lipitor 20 mg daily. Another recommendation is to manage BP patient BP is currently under control at 110/60 mmHg. My recommendation is to followup with cardiothoracic surgeon in [place] for consultation and followup for possible surgery. Patient was informed of this. Copies of CT and EKG reports and patient history will be sent to office in [place]. 3. Arrhythmia with pacemaker patient is a recent pacemaker placement on 07/18/16 and has had no problems with pacemaker. Pacemaker was checked today at bedside. Results were normal with 15 year battery life left. Recommendation is to follow-up with pacemaker checks per guidelines. 4. Asthma, COPD According to patient this is the first time he is being diagnosed with COPD he has a history of Asthma. Patient is currently on an anticholinergic inhaler Incruse Ellipta 1 puff qd and inhaled corticosteriod inhaler of Flovent HFA as rescue inhaler if needed. Recommend continuing on medication regimen as ordered. <Ravinder Aguilar - Last Filed: 08/22/16 08:39> H&P History of Present Illness - General Admit Problem/Dx: Admission Diagnosis/Problem Admission Diagnosis/Problem Chest pain Exam - Vital Signs Vital Signs: Last Vital Signs Temp 37.1 C 08/20/16 12:00 Pulse 65 08/20/16 12:00 Resp 16 08/20/16 12:00 BP 113/56 L 08/20/16 12:00 Pulse Ox 98 08/20/16 12:00 - Exam Peripheral Pulses: 2+: posterior tibial (L), posterior tibial (R), dorsalis pedis (L), dorsalis pedis (R) Skin: other (pacemaker incision scar left chest wall) - Patient Data Result Diagrams: 08/19/16 17:14 08/20/16 06:29 Consult PN Assessment/Plan Procedures: Procedures AIRWAY INHALATION TREATMENT (01/31/16) ASSAY OF AMYLASE (12/30/15) ASSAY OF FOLIC ACID SERUM (01/31/16) ASSAY OF LIPASE (12/30/15) ASSAY OF MAGNESIUM (01/31/16) ASSAY OF PHOSPHORUS (01/31/16) ASSAY OF TROPONIN QUANT (01/05/16) ASSAY THYROID STIM HORMONE (01/31/16) CHEST X-RAY 1 VIEW FRONTAL (12/30/15) CHEST X-RAY 2VW FRONTAL&LATL (04/27/16) COMPLETE CBC W/AUTO DIFF WBC (04/27/16) COMPREHEN METABOLIC PANEL (04/27/16) CT ABD & PELV W/CONTRAST (12/30/15) CT HEAD/BRAIN W/O DYE (01/31/16) CT THORAX W/DYE (12/30/15) DRAIN/INJ JOINT/BURSA W/O US (04/24/16) ELECTROCARDIOGRAM TRACING (02/08/16) EMERGENCY DEPT VISIT (04/27/16) EMERGENCY DEPT VISIT (01/31/16) EVALUATE PT USE OF INHALER (04/27/16) EXTRACRANIAL BILAT STUDY (01/31/16) GLUCOSE BLOOD TEST (01/31/16) HYDRATE IV INFUSION ADD-ON (12/30/15) HYDRATION IV INFUSION INIT (12/30/15) LIPID PANEL (01/31/16) METABOLIC PANEL TOTAL CA (01/31/16) MRI BRAIN STEM W/O & W/DYE (01/31/16) MRI LUMBAR SPINE W/O & W/DYE (01/31/16) OFFICE/OUTPATIENT VISIT NEW (04/24/16) OFFICE/OUTPATIENT VISIT NEW (04/24/16) PROTHROMBIN TIME (01/31/16) PT EVALUATION (04/04/16) ROUTINE VENIPUNCTURE (04/27/16) THERAPEUTIC EXERCISES (05/02/16) TTE W/DOPPLER COMPLETE (01/31/16) URINALYSIS AUTO W/SCOPE (01/31/16) VITAMIN B-12 (01/31/16) X-RAY EXAM KNEE 4 OR MORE (04/24/16) Problem List Initiated/Reviewed/Updated: Yes Plan: I discussed and agreed with H&P assessment [employer] note 65M bipolar disorder, with recurrent syncope, non obstructive CAD s/p dual chamber PPM with chest pain, now trop was negative, PPM showed no arrhythmia, however due to elevated DDimer, CT angiography was ordered, showed worsening ascending aortic aneurism from 4.4 in 12/2015 to 4.7 in 08/2016. Patient has good DP PT pulse, FP, I believe patient do not need surgery for now, but I think patient will need close monitoring, and I would shcedule him to see CT surgery TONY after discharged.
[2016-08-20 12:11] VITALS: BP 113/56
--- NOTE | 2016-08-20 13:43 | PCM.DCSUM1 ---
Discharge Summary - Hospital Course Brief History: This 66 year old male with pmh of CAD, COPD, arrhythmia with pacemaker placed 07/18/2016, and ascending aortic aneurysm who presented with acute onset of chest pain and SOB. He describes it as substernal, it radiated to the jaw with associated shortness of breath. He received nitro, ASA, O2 via NC and duonebs in the ED with resolution of his symptoms. Due to elevated D- dimer CT scan of chest was taken which showed no pulmonary embolism, ascending aortic aneurysm measuring 4.7 cm, which is a noted increased from December 2015 when it measured 4.4 cm. He was admitted for chest pain R/O ACS. - Discharge Data Discharge Date: 08/20/16 Discharge Disposition: Home, Self-Care 01 Condition: Good - Discharge Diagnosis/Problem(s) (1) Chest pain SNOMED Code(s): 43020317 ICD Code: R07.9 - CHEST PAIN, UNSPECIFIED Status: Acute Current Visit: Yes Qualifiers: Chest pain type: unspecified Qualified Code(s): R07.9 - Chest pain, unspecified (2) Pacemaker SNOMED Code(s): 283040279, 424667452 ICD Code: Z95.0 - PRESENCE OF CARDIAC PACEMAKER Status: Chronic Current Visit: Yes Problem Details: placed 07/18/2016 (3) COPD (chronic obstructive pulmonary disease) SNOMED Code(s): 67265240 ICD Code: J44.9 - CHRONIC OBSTRUCTIVE PULMONARY DISEASE, UNSPECIFIED Status : Chronic Current Visit: Yes Qualifiers: COPD type: unspecified COPD Qualified Code(s): J44.9 - Chronic obstructive pulmonary disease, unspecified (4) CAD (coronary artery disease) SNOMED Code(s): 47567162 ICD Code: I25.10 - ATHSCL HEART DISEASE OF [place] CORONARY ARTERY W/O ANG PCTRS Status: Chronic Current Visit: No - Patient Summary/Data Consults: Consultations 08/20/16 08:05 Consult to Physician [CONS] Routine - Patient Instructions Diet: Heart Healthy Diet Activity: No Strenuous Activities Showering/Bathing: October Shower Notify Provider of: Fever, Increased Pain, Swelling and Redness, Drainage, Nausea and/or Vomiting - Discharge Plan Home Medications: Home Meds ClonazePAM [KlonoPIN] 0.5 mg PO Q4H PRN 11/28/15 [History] Nitroglycerin [Nitrostat] 0.4 mg SL Q5M PRN 11/28/15 [History] Omeprazole 20 mg PO DAILY 11/28/15 [History] Albuterol Sulfate [Proair Respiclick] 2 puff IH Q4H PRN 01/31/16 [History] Aspirin [Adult Low Dose Aspirin EC] 81 mg PO DAILY 01/31/16 [History] Hydrocodone/Acetaminophen [Hydrocodon-Acetaminophn 10-325] 1 tab PO QID PRN [History] Umeclidinium [place] [Incruse Ellipta] 1 puff IH DAILY 01/31/16 [History] atorvaSTATin [Lipitor] 20 mg PO BEDTIME 01/31/16 [History] Amantadine [Symmetrel] 100 mg PO BID 04/27/16 [History] Fluticasone Propionate [Flovent HFA 220 MCG] 2 inh INH BID 04/27/16 [History] Docusate Sodium [Colace] 100 mg PO DAILY 08/19/16 [History] Lurasidone HCl [Latuda] 40 mg PO BID 08/19/16 [History] Tamsulosin [Flomax] 0.4 mg PO BIDPC 08/19/16 [History] Patient Handouts: Chronic Obstructive Pulmonary Disease Exacerbation, Easy-to- Read, Nonspecific Chest Pain, [id number] Referrals: [facility] [Outside] [facility] [Outside] Ravinder Aguilar MD [Physician] - 09/05/16 9:00 am - Discharge Summary/Plan Comment DC Time >30 min.: No Discharge Summary/Plan Comment: Discharge diagnoses: Chest pain-resolved ACS ruled out Increasing ascending aortic aneurysm (4.7 cm) CAD COPD Pacemaker secondary to arrhythmia Sohail was admitted and monitored overnight on telemetry. Telemetry showed no changes, SR BBB continued. No ST segment changes. Troponins were negative, ACS ruled out. Dr. Aguilar was consulted due to recent pacemaker placement as well as increasing ascending aortic aneurysm. Please see Sydnee Aguilar's consultation. He recommended follow up with cardiothoracic surgeon for increasing ascending aortic aneurysm, we will arrange this appointment. He also interrogated his pacemaker. He has not had any further chest pain or SOB. He is feeling well today. Will discharge home with follow up with Dr. Aguilar as well as cardiothoracic surgeon in [place], [place] at first available appointment. He has follow up August 31 for post-op follow up for pacemaker. Continue all home medications as previously prescribed. - General Info Date of Service: 08/20/16 Admission Dx/Problem (Free Text: Admission Diagnosis/Problem Admission Diagnosis/Problem Chest pain Subjective Update: Doing well this morning. Has no more complaints of chest pain or SOB. Has no complaints. Would like to go home today Functional Status: Reports: pain controlled, tolerating diet, ambulating, urinating - Review of Systems General: Reports: no symptoms HEENT: Reports: no symptoms Pulmonary: Reports: no symptoms Cardiovascular: Reports: no symptoms Gastrointestinal: Reports: No symptoms Genitourinary: Reports: no symptoms Musculoskeletal: Reports: no symptoms Neurological: Reports: no symptoms Psychiatric: Reports: no symptoms - Patient Data Vitals - Most Recent: Last Vital Signs Temp 98.8 F 08/20/16 12:00 Pulse 65 08/20/16 12:00 Resp 16 08/20/16 12:00 BP 113/56 L 08/20/16 12:00 Pulse Ox 98 08/20/16 12:00 Weight - Most Recent: 101.151 kg I&O - Last 24 hours: Intake & Output 08/19/16 08/20/16 08/20/16 22:59 06:59 14:59 Intake Total 440 Output Total 1050 Balance -610 Lab Results - Last 24 hrs: Laboratory Results - last 24 hr 08/19/16 08/20/16 08/20/16 Range/Units 23:05 06:29 06:29 Sodium 142 (136-146) mmol/L Potassium 4.3 (3.5-5.1) mmol/L Chloride 110 (98-110) mmol/L Carbon Dioxide 22 (21-31) mmol/L BUN 16 (6.0-23.0) mg/dL Creatinine 1.1 (0.6-1.5) mg/dL Est Cr Clr Drug Dosing 68.45 mL/min Estimated GFR (MDRD) > 60.0 ml/min Glucose 96 (60-110) mg/dL Calcium 8.8 (8.8-10.8) mg/dL Troponin I < 0.10 < 0.10 (0.0-0.29) NG/ML Med Orders - Current: Current Medications Acetaminophen/Hydrocodone Bitart ([place] 325-10 Mg) 1 tab PO QID PRN PRN Reason: Pain Albuterol (Ventolin Hfa) 0 gm INH Q4H PRN PRN Reason: shortness of breath/wheezing Amantadine HCl (Symmetrel) 100 mg PO BID [facility] Last Admin: 08/20/16 08:07 Dose: 100 mg Aspirin (Halfprin) 81 mg PO DAILY [facility] Last Admin: 08/20/16 08:38 Dose: 81 mg Atorvastatin Calcium (Lipitor) 20 mg PO DAILY [facility] Last Admin: 08/20/16 08:07 Dose: 20 mg Clonazepam (Klonopin) 0.5 mg PO Q4H PRN PRN Reason: Anxiety Docusate Sodium (Colace) 100 mg PO DAILY [facility] Last Admin: 08/20/16 08:07 Dose: 100 mg Fluticasone Propionate (Flovent Hfa 220 Mcg) 0 gm INH BIDRT [facility] Last Admin: 08/20/16 08:19 Dose: 1 puff Sodium Chloride (Normal Saline) 1,000 mls @ 999 mls/hr IV ASDIRECTED [facility] Last Admin: 08/19/16 19:17 Dose: 999 mls/hr Nitroglycerin (Nitrostat) 0.4 mg SL Q5M PRN PRN Reason: Chest Pain Omeprazole (Omeprazole) 20 mg PO DAILY [facility] Last Admin: 08/20/16 08:07 Dose: 20 mg Ondansetron HCl (Zofran Odt) 4 mg PO Q4H PRN PRN Reason: nausea, able to take PO Incruse Ellipta ( Umeclidinium [place] ) 0 each INH DAILYRT [facility] Last Admin: 08/20/16 07:29 Dose: Not Given Own Medication - (Latuda 80 Mg) 0 each PO BID [facility] Last Admin: 08/20/16 08:07 Dose: 40 each Sodium Chloride (Saline Flush) 10 ml FLUSH ASDIRECTED PRN PRN Reason: Keep Vein Open Last Admin: 08/19/16 17:27 Dose: 10 ml Sodium Chloride (Saline Flush) 2.5 ml FLUSH ASDIRECTED PRN PRN Reason: Keep Vein Open Last Admin: 08/19/16 17:27 Dose: 2.5 ml Tamsulosin [facility] Admin: 08/20/16 08:07 Dose: 0.4 mg Discontinued Medications Albuterol/Ipratropium (Duoneb 3.0-0.5 Mg/3 Ml) 3 ml NEB ONETIME ONE Stop: 08/19/16 17:08 Last Admin: 08/19/16 17:20 Dose: 3 ml Aspirin (Aspirin) 324 mg PO ONETIME ONE Stop: 08/19/16 17:07 Last Admin: 08/19/16 17:26 Dose: 324 mg Iodixanol ([place]ip[place] 320) 50 ml IVPUSH ONETIME STA Stop: 08/19/16 18:45 Last Admin: 08/19/16 18:44 Dose: 50 ml Lamotrigine (Lamotrigine) 200 mg PO BID [facility] Last Admin: 08/20/16 08:07 Dose: 200 mg Nitroglycerin (Nitrostat) 0.4 mg SL Q5M PRN PRN Reason: Chest Pain Stop: 08/19/16 17:17 Last Admin: 08/19/16 17:26 Dose: 0.4 mg Beclomethasone Dipropionate [Qvar] 1 Inh 1 each INH BID [facility] Last Admin: 08/20/16 07:28 Dose: Not Given - Exam General: Reports: alert, oriented, cooperative Neck: Reports: supple Lungs: Reports: Clear to auscultation, Normal respiratory effort Cardiovascular: Reports: regular rate, regular rhythm Abdomen: Reports: bowel sounds present, soft, no tenderness, no distension *Q Meaningful Use (DIS) - VTE *Q VTE Criteria *Q: - Stroke *Q Stroke Criteria *Q: - AMI *Q AMI Criteria *Q:
--- NOTE | 2016-08-20 21:45 | CR ---
EXAM DATE: 08/19/16 PATIENT'S AGE: 66 Patient: MILES LAL Facility: [place], [place] Site . Site : 1950 Study: XRay Chest [id number]/12/[id number] 5:35:08 PM Ordering Physician: Ty Martínez Final Report: INDICATION: Pain and shortness of breath TECHNIQUE: Chest 1 view. COMPARISON: 04/27/16 FINDINGS: Cardiovascular and mediastinum: Heart size and vasculature are normal in caliber and appearance. Mediastinum is within normal limits. Left-sided dual lead transvenous pacer device. Lungs and pleural space: Lungs are clear. No sign of infiltrate or mass. No sign of pleural effusion. No pneumothorax. Bones and soft tissues: No significant findings. IMPRESSION: Unremarkable chest. Dictated by Elio Rascon MD @ 08/19/2016 5:58:33 PM Dictated by: Elio Rascon MD @ 08/19/2016 17:58:40 (Electronic Signature) Report Signed by Proxy and Original Signed Document filed in the Medical Record. [facility]
--- NOTE | 2016-08-20 21:46 | CT ---
EXAM DATE: 08/19/16 PATIENT'S AGE: 66 Patient: MILES LAL Facility: [place], [place] Site . Site : 1950 Study: CT Chest Angio [id number] PE-08/19/2016 6:49:03 PM Ordering Physician: Ty Martínez Final Report: Indication: Shortness of breath and chest pain. Technique: CT angiogram of the chest with coronal and sagittal reformats. Comparison: None. Findings: There is no evidence of pulmonary embolism. There is an ascending aortic aneurysm measuring 4.7 cm AP. Scattered vascular calcifications are noted including the coronary arteries. Pacemaker/defibrillator in leads are in place. No suspicious mediastinal, hilar or axillary lymphadenopathy. There is mild bibasilar atelectasis. No acute airspace disease. The upper abdomen is unremarkable. There are degenerative changes in the spine. Impression: 1. No pulmonary embolism. 2. Ascending aortic aneurysm measuring 4.7 cm AP. 3. Bibasilar atelectasis with no other airspace disease. Dictated by Brigette Serra MD @ Aug 19 2016 7:05PM (Electronic Signature) Report Signed by Proxy and Original Signed Document filed in the Medical Record. [facility]
--- NOTE | 2016-08-22 08:23 | PCM.PRNOTE ---
- Free Text/Narrative Note: Pacemaker Interrogation: re-programing Date of Service 08/20/2016 Device: [facility] [facility] Dual chamber pacemaker Date of Implant 07/18/2016 Mode DDD RA lead: [facility] 7741 # [id number] Threshold 0.1 mV @ 0.04 RV lead: [facility] 7742 # [id number] Threshold 0.6 mV @ 0.04 no arrhythmia
== END 2016-08-20 13:20 | disposition home or self-care (01) ==
LOC: MW.ED 16:38 → MW.MS 20:03
PROVIDERS: ADMIT Internal Medicine; ATTEND Internal Medicine
DX: I45.10 Unspecified right bundle-branch block (principal); R07.89 Other chest pain; I71.2 Thoracic aortic aneurysm, without rupture; I49.9 Cardiac arrhythmia, unspecified; J44.9 Chronic obstructive pulmonary disease, unspecified; I25.10 Atherosclerotic heart disease of native coronary artery without angina pectoris; I10 Essential (primary) hypertension; I25.2 Old myocardial infarction; J45.909 Unspecified asthma, uncomplicated; G30.9 Alzheimer's disease, unspecified; F02.80 Dementia in other diseases classified elsewhere, unspecified severity, without behavioral disturbance, psychotic disturbance, mood disturbance, and anxiety; F41.9 Anxiety disorder, unspecified; F32.9 Major depressive disorder, single episode, unspecified; E11.9 Type 2 diabetes mellitus without complications; F17.210 Nicotine dependence, cigarettes, uncomplicated; Z85.47 Personal history of malignant neoplasm of testis; Z98.890 Other specified postprocedural states; Z95.1 Presence of aortocoronary bypass graft; Z96.659 Presence of unspecified artificial knee joint; Z95.0 Presence of cardiac pacemaker; Z88.0 Allergy status to penicillin; Z79.82 Long term (current) use of aspirin; Z79.899 Other long term (current) drug therapy
CPT/HCPCS: 36415; 62370; 71010; 71275; 80048; 80053; 83880; 84484; 85025; 85379; 85610; 85730; 93005; 94664; 96360; 99285; A9270; G0378; J7040; Q9967

== ENCOUNTER → 2016-09-05 | Outpatient (CLI) | payer MEDICARE, MEDICAID ==
--- NOTE | 2016-09-05 10:51 | CR ---
EXAMINATION: Abdomen HISTORY: Pain COMPARISON: None TECHNIQUE: AP and upright views of the abdomen FINDINGS: There is no free air under the diaphragm. There is a moderate amount of stool and gas with in the colon most prominent within the cecal region. No dilated loops of small bowel. No organomegal y. No abnormal calcifications project over the kidneys. Degenerative changes are noted within the lo wer lumbar spine. No suspicious osseous abnormalities. IMPRESSION: 1. Moderate amount of stool within the colon, correlate for constipation.
== END ==
LOC: MW.CHIM 09:21
PROVIDERS: ATTEND Internal Medicine
DX: R10.9 Unspecified abdominal pain (principal); R55 Syncope and collapse; I71.2 Thoracic aortic aneurysm, without rupture; J44.9 Chronic obstructive pulmonary disease, unspecified
CPT/HCPCS: 36415; 74020; 74020-26; 80053; 81001; 85025; G0463

== ENCOUNTER 2016-10-20 11:14 | Emergency (ER) | payer MEDICARE, MEDICAID, OTHER ==
[2016-10-20] MEDS ORDERED: Aspirin 325 MG Tab ONE (11:29)
[2016-10-20] MEDS ORDERED: Aspirin 325 MG Tab PO ONE (11:30)
[2016-10-20] MEDS ORDERED: Aspirin 81 MG Tab.Chew PO ONE (11:33)
[2016-10-20] MEDS ORDERED: Nitroglycerin 0.4 MG Tab.SL SL ONE (11:33)
[2016-10-20] MEDS ORDERED: Nitroglycerin 0.4 MG Tab.SL ONE (11:35)
--- NOTE | 2016-10-20 11:39 | EDM.PDOC ---
ED HPI GENERAL MEDICAL PROBLEM - General Chief Complaint: Chest Pain Stated Complaint: UNK Time Seen by Provider: 10/20/16 11:25 Source of Information: Reports: Patient, Family History Limitations: Reports: No Limitations - History of Present Illness INITIAL COMMENTS - FREE TEXT/NARRATIVE: HISTORY AND PHYSICAL: History of present illness: [Patient is brought to the emergency room by his nephew with complaints of left- sided chest pain for the past 2-1/2 hours. He is having radiation into his left neck and jaw and between his shoulder blades. Shortness of breath with this chest pain, but has improved with wearing oxygen while in the ER. He describes the pain as a heaviness and pressure to his left midchest. He took one nitroglycerin 20 minutes after the pain started, repeated this dose 20 minutes later and had no improvement in his pain. he took a third nitroglycerin about one hour later, and had improvement in his pain. On presentation to the emergency room he rates his pain at 6/10 with continued pain to his left chest, neck jaw and between his shoulder blades. Did not take aspirin today. He reports that he has an aortic aneurysm. Has seen Dr. Pantoja the [facility] and follows regularly with Dr. Vázquez his PCP. Apparently was evaluated by a [facility] in [place] who did not have all of his records and EKGs and according to nephew, was unable to offer any cardiac interventions. Pacemaker placed approx 3 months ago. Hx of hyperlipidemia, COPD, TIA, CAD. ] Review of systems: As per history of present illness and below otherwise all systems reviewed and negative. Past medical history: As per history of present illness and as reviewed below otherwise noncontributory. Surgical history: As per history of present illness and as reviewed below otherwise noncontributory. Social history: No reported history of drug or alcohol abuse. Family history: As per history of present illness and as reviewed below otherwise noncontributory. Physical exam: General: Elderly appearing male, appears in no acute distress. Smells heavily of cigarette smoke HEENT: Atraumatic, normocephalic. PERRLA. EOMI. mucous membranes moist, throat clear. trachea midline. Lungs: Clear to auscultation, breath sounds equal bilaterally. No wheezing crackles or rales. Heart: S1S2, rate is regular at 64. negative for clicks, rubs, or JVD. Abdomen: Soft, nondistended, nontender. No masses guarding or ground. Pelvis: Stable nontender. Genitourinary: Deferred. Rectal: Deferred. Extremities: Atraumatic. No cyanosis or edema to feet or lower legs. pedal pulses are 2+ and equal bilaterally. Neurovascular unremarkable. Neuro: Awake, alert, oriented. Motor and sensory unremarkable throughout. Exam nonfocal. Diagnostics: [EKG, CXR, CBC, CMP, troponin, INR/PT/PTT] Therapeutics: [asa 324mg chewed, nitro 0.4mg SL, nitro paste 0.4mg, morphine 2mg IV x 2, normal saline 500 mL bolus then 125 mLs/hour, Nitro drip. ] Impression: [chest pain] Plan: [EKG shows no change from previous EKG from August 2016. Troponin <0.10. Pain improves to 1/10 after morphine and nitro paste, then begins to increase to 3 /10. Nitro drip started. Discussed patient's condition with Dr. Yang at [facility], who agrees to accept patient in transfer via ground EMS at 1:30 p.m. Patient and nephew are in agreement w/ today's plan.] Definitive disposition and diagnosis as appropriate pending reevaluation and review of above. chest area Pain Score (Numeric/FACES): 7 - Related Data Allergies Allergy/AdvReac Type Severity Reaction Status Date / Time Penicillins Allergy Rash Verified 10/20/16 11:22 Home Meds: Home Meds ClonazePAM [KlonoPIN] 0.5 mg PO Q4H PRN 11/28/15 [History] Nitroglycerin [Nitrostat] 0.4 mg SL Q5M PRN 11/28/15 [History] Omeprazole 20 mg PO DAILY 11/28/15 [History] Albuterol Sulfate [Proair Respiclick] 2 puff IH Q4H PRN 01/31/16 [History] Aspirin [Adult Low Dose Aspirin EC] 81 mg PO DAILY 01/31/16 [History] Hydrocodone/Acetaminophen [Hydrocodon-Acetaminophn 10-325] 1 tab PO QID PRN [History] Umeclidinium [place] [Incruse Ellipta] 1 puff IH DAILY 01/31/16 [History] atorvaSTATin [Lipitor] 20 mg PO BEDTIME 01/31/16 [History] Amantadine [Symmetrel] 100 mg PO BID 04/27/16 [History] Fluticasone Propionate [Flovent HFA 220 MCG] 2 inh INH BID 04/27/16 [History] Docusate Sodium [Colace] 100 mg PO DAILY 08/19/16 [History] Lurasidone HCl [Latuda] 40 mg PO BID 08/19/16 [History] Tamsulosin [Flomax] 0.4 mg PO BIDPC 08/19/16 [History] Past Medical History - Past Health History Medical/Surgical History: Denies Medical/Surgical History HEENT History: Reports: None Cardiovascular History: Reports: Aneurysm, Arrhythmia, Hypertension, SD, Other ( See Below) Other Cardiovascular History: prior obstructive coronary disease noted on angiogram about four years ago by patient history Respiratory History: Reports: Asthma, Other (See Below) Other Respiratory History: on inhaler, but does not know why Gastrointestinal History: Reports: Other (See Below) Other Gastrointestinal History: liver disease Genitourinary History: Reports: None Musculoskeletal History: Reports: Back Pain, Chronic, Other (See Below) Other Musculoskeletal History: Chronic knee pain Neurological History: Reports: Alzheimers Disease, Other (See Below) Other Neuro History: being evaluated for parkinson's Psychiatric History: Reports: Anxiety, Depression Endocrine/Metabolic History: Reports: Diabetes, Type II Hematologic History: Reports: None Immunologic History: Reports: None Oncologic (Cancer) History: Reports: Other (See Below) Other Oncologic History: Testicular Cancer Dermatologic History: Reports: None - Infectious Disease History Infectious Disease History: Reports: None - Past Surgical History Cardiovascular Surgical History: Reports: Coronary Artery Bypass Male Surgical History: Reports: Other (See Below) Musculoskeletal Surgical History: Reports: Knee Replacement Social & Family History - Family History Family Medical History: Noncontributory - Tobacco Use Smoking Status *Q: Current Every Day Smoker Years of Tobacco use: 15 Packs/Tins Daily: 0.2 Second Hand Smoke Exposure: No - Caffeine Use Caffeine Use: Reports: Coffee - Alcohol Use Days Per Week of Alcohol Use: 1 Number of Drinks Per Day: 1 Total Drinks Per Week: 1 - Recreational Drug Use Recreational Drug Use: No - Living Situation & Occupation Living situation: Reports: Single, with Family Occupation: Disabled ED ROS GENERAL - Review of Systems Review Of Systems: ROS reveals no pertinent complaints other than HPI. ED EXAM, GENERAL - Physical Exam Exam: See Below Course - Vital Signs Last Recorded V/S: Last Vital Signs Temp 97.3 F 10/20/16 13:50 Pulse 60 10/20/16 13:50 Resp 19 10/20/16 13:50 BP 127/79 10/20/16 13:50 Pulse Ox 98 10/20/16 13:50 - Orders/Labs/Meds Orders: Active Orders 24 hr Category Date Time Status Cardiac Monitoring [RC] . DIRECTED Care 10/20/16 11:21 Active EKG Documentation Completion [RC] STAT Care 10/20/16 11:21 Active Chest 2V [CR] Stat Exams 10/20/16 11:22 Taken Labs: Laboratory Tests 10/20/16 10/20/16 10/20/16 Range/Units 11:30 11:30 11:30 WBC 5.26 (4.0-11.0) K/uL RBC 5.19 (4.50-5.90) M/uL Hgb 14.6 (13.0-17.0) g/dL Hct 45.2 (38.0-50.0) % MCV 87.1 (80.0-98.0) fL MCH 28.1 (27.0-32.0) pg MCHC 32.3 (31.0-37.0) g/dL RDW Std Deviation 43.5 (28.0-62.0) fl RDW Coeff of [place] 14 (11.0-15.0) % Plt Count 128 L (150-400) K/uL MPV 8.50 (7.40-12.00) fL Neut % (Auto) 79.8 (48.0-80.0) % Lymph % (Auto) 14.6 L (16.0-40.0) % Rice % (Auto) 4.4 (0.0-15.0) % Eos % (Auto) 1.0 (0.0-7.0) % Baso % (Auto) 0.2 (0.0-1.5) % Neut # (Auto) 4.2 (1.4-5.7) K/uL Lymph # (Auto) 0.8 (0.6-2.4) K/uL [place] # (Auto) 0.2 (0.0-0.8) K/uL Eos # (Auto) 0.1 (0.0-0.7) K/uL Baso # (Auto) 0.0 (0.0-0.1) K/uL Nucleated RBC % 0.0 /100WBC Nucleated RBCs # 0 K/uL INR 1.06 (0.86-1.11) Sodium 138 (136-146) mmol/L Potassium 4.6 (3.5-5.1) mmol/L Chloride 104 (98-110) mmol/L Carbon Dioxide 25 (21-31) mmol/L BUN 14 (6.0-23.0) mg/dL Creatinine 1.4 (0.6-1.5) mg/dL Est Cr Clr Drug Dosing 53.57 mL/min Estimated GFR (MDRD) 50.4 ml/min Glucose 129 H (60-110) mg/dL Calcium 9.7 (8.8-10.8) mg/dL Total Bilirubin 0.9 (0.1-1.5) mg/dL AST 17 (5-40) IU/L ALT 14 (8-54) IU/L Alkaline Phosphatase 95 (40-150) Troponin I (0.0-0.29) NG/ML Total Protein 7.0 (6.0-8.0) g/dL Albumin 4.4 (3.4-4.8) g/dL Globulin 2.6 (2.0-3.5) g/dL Albumin/Globulin Ratio 1.7 (1.3-2.8) 10/20/16 Range/Units 11:30 WBC (4.0-11.0) K/uL RBC (4.50-5.90) M/uL Hgb (13.0-17.0) g/dL Hct (38.0-50.0) % MCV (80.0-98.0) fL MCH (27.0-32.0) pg MCHC (31.0-37.0) g/dL RDW Std Deviation (28.0-62.0) fl RDW Coeff of Luc[place] (11.0-15.0) % Plt Count (150-400) K/uL MPV (7.40-12.00) fL Neut % (Auto) (48.0-80.0) % Lymph % (Auto) (16.0-40.0) % Rice % (Auto) (0.0-15.0) % Eos % (Auto) (0.0-7.0) % Baso % (Auto) (0.0-1.5) % Neut # (Auto) (1.4-5.7) K/uL Lymph # (Auto) (0.6-2.4) K/uL Rice # (Auto) (0.0-0.8) K/uL Eos # (Auto) (0.0-0.7) K/uL Baso # (Auto) (0.0-0.1) K/uL Nucleated RBC % /100WBC Nucleated RBCs # K/uL INR (0.86-1.11) Sodium (136-146) mmol/L Potassium (3.5-5.1) mmol/L Chloride (98-110) mmol/L Carbon Dioxide (21-31) mmol/L BUN (6.0-23.0) mg/dL Creatinine (0.6-1.5) mg/dL Est Cr Clr Drug Dosing mL/min Estimated GFR (MDRD) ml/min Glucose (60-110) mg/dL Calcium (8.8-10.8) mg/dL Total Bilirubin (0.1-1.5) mg/dL AST (5-40) IU/L ALT (8-54) IU/L Alkaline Phosphatase (40-150) Troponin I < 0.10 (0.0-0.29) NG/ML Total Protein (6.0-8.0) g/dL Albumin (3.4-4.8) g/dL Globulin (2.0-3.5) g/dL Albumin/Globulin Ratio (1.3-2.8) Meds: Medications Discontinued Medications Generic Name Dose Route Start Last Admin Trade Name Freq PRN Reason Stop Dose Admin Aspirin 325 mg 10/20/16 11:30 10/20/16 11:32 Aspirin PO 10/20/16 11:31 325 mg ONETIME ONE Administration Aspirin Confirm 10/20/16 11:29 10/20/16 11:32 Aspirin Administered 10/20/16 11:30 Not Given Dose 325 mg .ROUTE .STK-MED ONE Aspirin 324 mg 10/20/16 11:33 10/20/16 12:02 Aspirin PO 10/20/16 11:34 Not Given ONETIME ONE Sodium Chloride 1,000 mls @ 999 mls/hr 10/20/16 11:44 10/20/16 11:46 Normal Saline IV 10/20/16 12:44 999 mls/hr SEECOMMENT ONE Administration Sodium Chloride 500 mls @ 250 mls/hr 10/20/16 11:45 Normal Saline IV .BOLUS ISAIAH Nitroglycerin/Dextrose 25 mg in 250 mls @ 3 mls/hr 10/20/16 13:30 10/20/16 13 :50 Nitroglycerin 25 Mg/D5w 250 Ml IV 5 mcg/min TITRATE ISAIAH 3 mls/hr Protocol Administration 5 MCG/MIN Morphine Sulfate 2 mg 10/20/16 12:15 10/20/16 12:21 Morphine IVPUSH 10/20/16 12:16 2 mg ONETIME ONE Administration Morphine Sulfate 2 mg 10/20/16 13:08 10/20/16 13:13 Morphine IV 10/20/16 13:09 2 mg ONETIME ONE Administration Nitroglycerin 0.4 mg 10/20/16 11:33 10/20/16 11:45 Nitrostat SL 10/20/16 11:34 0.4 mg ONETIME ONE Administration Nitroglycerin Confirm 10/20/16 11:35 10/20/16 12:33 Nitrostat Administered 10/20/16 11:36 Not Given Dose 1.2 mg .ROUTE .STK-MED ONE Nitroglycerin 1 gm 10/20/16 12:35 10/20/16 12:41 Nitro-Bid 2% TOP 10/20/16 12:36 1 gm ONETIME ONE Administration Departure - Departure Time of Disposition: 13:30 Disposition: DC/Tfer to Acute Hospital 02 Reason for Transfer *Q: Primary PCI Indicated Condition: fair Clinical Impression: Chest pain Referrals: Ravinder Aguilar MD [Primary Care Provider] - Forms: ED Department Discharge - My Orders Last 24 Hours: My Active Orders 10/20/16 11:21 Cardiac Monitoring [RC] . DIRECTED EKG Documentation Completion [RC] STAT 10/20/16 11:22 Chest 2V [CR] Stat - Assessment/Plan Last 24 Hours: My Active Orders 10/20/16 11:21 Cardiac Monitoring [RC] . DIRECTED EKG Documentation Completion [RC] STAT 10/20/16 11:22 Chest 2V [CR] Stat
[2016-10-20] MEDS ORDERED: Sodium Chloride 0.9% 1,000 ML IV ONE (11:44)
[2016-10-20] MEDS ORDERED: Sodium Chloride 0.9% 500 ML IV SCH (11:45)
[2016-10-20] MEDS ORDERED: Morphine 2 MG/ML Syringe IVPUSH ONE (12:15)
[2016-10-20] MEDS ORDERED: Nitroglycerin 2% Oint 1 GM UD Packet TOP ONE (12:35)
[2016-10-20] MEDS ORDERED: Morphine 10 MG/ML Syringe IV ONE (13:08)
[2016-10-20] MEDS ORDERED: Nitroglycerin/D5W 25 MG/250 ML BOTTLE IV SCH (13:30)
[2016-10-20 15:30] VITALS: BP 127/79
--- NOTE | 2016-10-22 14:51 | CR ---
EXAM DATE: 10/20/16 PATIENT'S AGE: 66 Patient: MILES LAL Facility: [place], [place] Site . Site : 1950 Study: XRay Chest [id number]/[id number] 12:05:51 PM Ordering Physician: Doctor Norton Final Report: CHEST 2 VIEWS INDICATION: Chest pain. COMPARISON: 08/19/2016 IMPRESSION: No overall change Left. -sided pacemaker device and right atrial and right ventricular pacemaking leads. The lungs are clear. The heart size is normal. Dictated by Tuan López MD @ Oct 20 2016 12:24PM (Electronic Signature) Report Signed by Proxy. RAHEEM
== END 2016-10-20 14:00 ==
LOC: MW.ED 11:14
DX: R07.9 Chest pain, unspecified (principal); I71.4 Abdominal aortic aneurysm, without rupture; E78.5 Hyperlipidemia, unspecified; J44.9 Chronic obstructive pulmonary disease, unspecified; I25.10 Atherosclerotic heart disease of native coronary artery without angina pectoris; I10 Essential (primary) hypertension; I25.2 Old myocardial infarction; J45.909 Unspecified asthma, uncomplicated; G30.9 Alzheimer's disease, unspecified; F02.80 Dementia in other diseases classified elsewhere, unspecified severity, without behavioral disturbance, psychotic disturbance, mood disturbance, and anxiety; E11.9 Type 2 diabetes mellitus without complications; F17.200 Nicotine dependence, unspecified, uncomplicated; Z88.0 Allergy status to penicillin; Z95.0 Presence of cardiac pacemaker; Z79.899 Other long term (current) drug therapy; Z85.47 Personal history of malignant neoplasm of testis; Z95.1 Presence of aortocoronary bypass graft; Z86.73 Personal history of transient ischemic attack (TIA), and cerebral infarction without residual deficits
CPT/HCPCS: 36415; 71020; 80053; 84484; 85025; 85610; 96361; 96374; 96375; 96376; 99285; A9270; J2270; J7040; 93005

== ENCOUNTER → 2016-10-22 | Outpatient (CLI) | payer MEDICARE, MEDICAID, OTHER | LOC: MW.CHIM 08:00 | PROVIDERS: ATTEND Internal Medicine | DX: I71.2 Thoracic aortic aneurysm, without rupture (principal); J44.9 Chronic obstructive pulmonary disease, unspecified; E78.00 Pure hypercholesterolemia, unspecified; R55 Syncope and collapse | CPT/HCPCS: 99214 ==

== ENCOUNTER 2017-01-11 10:56 | Observation (INO) | payer MEDICARE, MEDICAID ==
[2017-01-11] MEDS ORDERED: Aspirin 81 MG Tab.Chew PO ONE (11:15)
[2017-01-11] MEDS ORDERED: Famotidine 20 MG/2 ML SDV IVPUSH ONE (11:15)
[2017-01-11] MEDS ORDERED: Sodium Chloride 0.9% 1,000 ML IV ONE (11:20)
[2017-01-11] MEDS ORDERED: Ketorolac 30 MG/ML SDV IVPUSH ONE (11:20)
--- NOTE | 2017-01-11 11:37 | EDM.PDOC ---
ED HPI GENERAL MEDICAL PROBLEM - General Chief Complaint: General Stated Complaint: MED CHANGE SIDE EFFECTS Time Seen by Provider: 01/11/17 11:15 Source of Information: Reports: Patient, Family History Limitations: Reports: No Limitations - History of Present Illness INITIAL COMMENTS - FREE TEXT/NARRATIVE: History of present illness: [66-year-old male brought in by son secondary to concerns of altered mental status. Patient is on several medications and suffers from some nature of dementia and has progressively declined. Patient's nephew who is durable medical power of county attorney indicates he is very concerned that there is a problem with all of his meds and several med changes as the patient is having inability to walk, generalized weakness, has fallen and hit his head, and overall will spontaneously follow a sleep in the middle of a sentence.] Review of systems: As per history of present illness and below otherwise all systems reviewed and negative. Past medical history: As per history of present illness and as reviewed below otherwise noncontributory. Surgical history: As per history of present illness and as reviewed below otherwise noncontributory. Social history: No reported history of drug or alcohol abuse. Family history: As per history of present illness and as reviewed below otherwise noncontributory. Physical exam: HEENT: Atraumatic, normocephalic, pupils reactive, negative for conjunctival pallor or scleral icterus, mucous membranes moist, throat clear, neck supple, nontender, trachea midline. Lungs: Clear to auscultation, breath sounds equal bilaterally, chest nontender. Heart: S1S2, regular, negative for clicks, rubs, or JVD. Abdomen: Soft, nondistended, nontender. Negative for masses or hepatosplenomegaly. Negative for costovertebral tenderness. Pelvis: Stable nontender. Genitourinary: Deferred. Rectal: Deferred. Extremities: Atraumatic, negative for cords or calf pain. Neurovascular unremarkable. Neuro: Initially awake, alert and responsive then subsequently in the middle of a sentence patient falls asleep and has sonorous respirations. Cranial nerves II through XII unremarkable. Cerebellum unremarkable. Motor and sensory unremarkable throughout. Exam nonfocal. Patient has a myriad of underlying diagnosis to include CBC the, bipolar disorder, dementia, and some cardiac issues. For all these diagnosis as patient does take numerous medications and the nephew who is durable medical power of county attorney feels that there could be a problem with the medications impacting the patient's ADLs and his general presentation. CT of head is negative and there are no significant findings per lab will discuss with Dr. Fountain admission for observation and further evaluation. Diagnostics: [EKG, CBC, CMP, CT of head, amylase, lipase] Therapeutics: [IV fluid] Impression: [Altered mental status] Plan: [Admit] Definitive disposition and diagnosis as appropriate pending reevaluation and review of above. - Related Data Allergies Allergy/AdvReac Type Severity Reaction Status Date / Time Penicillins Allergy Rash Verified 01/11/17 11:05 Home Meds: Home Meds ClonazePAM [KlonoPIN] 0.5 mg PO Q4H PRN 11/28/15 [History] Nitroglycerin [Nitrostat] 0.4 mg SL Q5M PRN 11/28/15 [History] Omeprazole 20 mg PO DAILY 11/28/15 [History] Albuterol Sulfate [Proair Respiclick] 2 puff IH Q4H PRN 01/31/16 [History] Aspirin [Adult Low Dose Aspirin EC] 81 mg PO DAILY 01/31/16 [History] Hydrocodone/Acetaminophen [Hydrocodon-Acetaminophn 10-325] 1 tab PO QID PRN [History] Umeclidinium [place] [Incruse Ellipta] 1 puff IH DAILY 01/31/16 [History] atorvaSTATin [Lipitor] 20 mg PO BEDTIME 01/31/16 [History] Amantadine [Symmetrel] 100 mg PO BID 04/27/16 [History] Fluticasone Propionate [Flovent HFA 220 MCG] 2 inh INH BID 04/27/16 [History] Docusate Sodium [Colace] 100 mg PO DAILY 08/19/16 [History] Lurasidone HCl [Latuda] 120 mg PO BID 08/19/16 [History] Tamsulosin [Flomax] 0.4 mg PO BIDPC 08/19/16 [History] Gabapentin [Neurontin] 400 mg PO TID 01/11/17 [History] Past Medical History - Past Health History Medical/Surgical History: Denies Medical/Surgical History HEENT History: Reports: None Cardiovascular History: Reports: Aneurysm, Arrhythmia, Hypertension, [place], Pacemaker, Other (See Below) Other Cardiovascular History: prior obstructive coronary disease noted on angiogram about four years ago by patient history Respiratory History: Reports: Asthma, Other (See Below) Other Respiratory History: on inhaler, but does not know why Gastrointestinal History: Reports: Other (See Below) Other Gastrointestinal History: liver disease Genitourinary History: Reports: None Musculoskeletal History: Reports: Back Pain, Chronic, Other (See Below) Other Musculoskeletal History: Chronic knee pain Neurological History: Reports: Alzheimers Disease, Other (See Below) Other Neuro History: being evaluated for parkinson's Psychiatric History: Reports: Anxiety, Bipolar, Depression Endocrine/Metabolic History: Reports: Diabetes, Type II Hematologic History: Reports: None Immunologic History: Reports: None Oncologic (Cancer) History: Reports: Other (See Below) Other Oncologic History: Testicular Cancer Dermatologic History: Reports: None - Infectious Disease History Infectious Disease History: Reports: None - Past Surgical History Head Surgeries/Procedures: Reports: None Cardiovascular Surgical History: Reports: Coronary Artery Bypass Male Surgical History: Reports: Other (See Below) Musculoskeletal Surgical History: Reports: Knee Replacement Social & Family History - Family History Family Medical History: Noncontributory - Tobacco Use Smoking Status *Q: Current Some Day Smoker Years of Tobacco use: 50 Packs/Tins Daily: 1 Second Hand Smoke Exposure: No - Caffeine Use Caffeine Use: Reports: Coffee - Alcohol Use Days Per Week of Alcohol Use: 1 Number of Drinks Per Day: 1 Total Drinks Per Week: 1 - Recreational Drug Use Recreational Drug Use: No - Living Situation & Occupation Living situation: Reports: Single, with Family Occupation: Disabled ED ROS GENERAL - Review of Systems Review Of Systems: See Below (See history of present illness) ED EXAM, GENERAL - Physical Exam Exam: See Below (History of present illness) Course - Vital Signs Last Recorded V/S: Last Vital Signs Temp 36.1 C 01/11/17 11:09 Pulse 69 01/11/17 11:09 Resp 20 01/11/17 11:09 BP 119/70 01/11/17 11:09 Pulse Ox 95 01/11/17 11:09 - Orders/Labs/Meds Orders: Active Orders 24 hr Category Date Time Status Cardiac Monitoring [RC] . DIRECTED Care 01/11/17 11:15 Active UA W/MICROSCOPIC [URIN] Stat Lab 01/11/17 12:20 Uncollected Saline Lock Insert [OM.PC] Stat Oth 01/11/17 11:15 Ordered Labs: Laboratory Tests 01/11/17 01/11/17 01/11/17 Range/Units 11:36 11:36 11:36 WBC 4.78 (4.0-11.0) K/uL RBC 4.90 (4.50-5.90) M/uL Hgb 14.1 (13.0-17.0) g/dL Hct 43.4 (38.0-50.0) % MCV 88.6 (80.0-98.0) fL MCH 28.8 (27.0-32.0) pg MCHC 32.5 (31.0-37.0) g/dL RDW Std Deviation 46.1 (28.0-62.0) fl RDW Coeff of [place] 14 (11.0-15.0) % Plt Count 119 L (150-400) K/uL MPV 9.00 (7.40-12.00) fL Neut % (Auto) 71.1 (48.0-80.0) % Lymph % (Auto) 20.7 (16.0-40.0) % [place] % (Auto) 5.9 (0.0-15.0) % Eos % (Auto) 1.9 (0.0-7.0) % Baso % (Auto) 0.4 (0.0-1.5) % Neut # (Auto) 3.4 (1.4-5.7) K/uL Lymph # (Auto) 1.0 (0.6-2.4) K/uL [place] # (Auto) 0.3 (0.0-0.8) K/uL Eos # (Auto) 0.1 (0.0-0.7) K/uL Baso # (Auto) 0.0 (0.0-0.1) K/uL Nucleated RBC % 0.0 /100WBC Nucleated RBCs # 0 K/uL Sodium 139 (136-146) mmol/L Potassium 3.6 (3.5-5.1) mmol/L Chloride 107 (98-110) mmol/L Carbon Dioxide 22 (21-31) mmol/L BUN 18 (6.0-23.0) mg/dL Creatinine 1.2 (0.6-1.5) mg/dL Est Cr Clr Drug Dosing 62.49 mL/min Estimated GFR (MDRD) > 60.0 ml/min Glucose 125 H (60-110) mg/dL Calcium 9.4 (8.8-10.8) mg/dL Total Bilirubin 0.6 (0.1-1.5) mg/dL AST 13 (5-40) IU/L ALT 11 (8-54) IU/L Alkaline Phosphatase 111 (40-150) Troponin I < 0.10 (0.0-0.29) NG/ML Total Protein 6.8 (6.0-8.0) g/dL Albumin 4.1 (3.4-4.8) g/dL Globulin 2.7 (2.0-3.5) g/dL Albumin/Globulin Ratio 1.5 (1.3-2.8) Amylase 64 (10-90) U/L Lipase 19 (7-80) U/L Meds: Medications Discontinued Medications Generic Name Dose Route Start Last Admin Trade Name Freq PRN Reason Stop Dose Admin Aspirin 324 mg 01/11/17 11:15 01/11/17 11:43 Aspirin PO 01/11/17 11:16 324 mg ONETIME ONE Administration Famotidine 20 mg 01/11/17 11:15 01/11/17 11:45 Pepcid IVPUSH 01/11/17 11:16 20 mg ONETIME ONE Administration Sodium Chloride 1,000 mls @ 999 mls/hr 01/11/17 11:20 01/11/17 11:40 Normal Saline IV 01/11/17 12:20 999 mls/hr .Bolus ONE Administration Ketorolac Tromethamine 30 mg 01/11/17 11:20 01/11/17 11:44 Toradol IVPUSH 01/11/17 11:21 30 mg ONETIME ONE Administration Departure - Departure Time of Disposition: 13:06 Disposition: Refer to Observation Condition: Good Clinical Impression: Altered mental status - Discharge Information Forms: ED Department Discharge - My Orders Last 24 Hours: My Active Orders 01/11/17 11:15 Cardiac Monitoring [RC] . DIRECTED Saline Lock Insert [OM.PC] Stat - Assessment/Plan Last 24 Hours: My Active Orders 01/11/17 11:15 Cardiac Monitoring [RC] . DIRECTED Saline Lock Insert [OM.PC] Stat
[2017-01-11 12:09] LABS: CHLORIDE,CL 107 mmol/L (98-110); SODIUM,NA 139 mmol/L (136-146)
--- NOTE | 2017-01-11 13:00 | CT ---
EXAMINATION: Non contrast CT head. Coronal and sagittal reformats. HISTORY: Pain FINDINGS: No evidence of intra or extra axial hemorrhage, mass, midline shift, hydrocephalus or edema. Mild p eriventricular white matter hypodensities noted. No hypoattenuation changes in the major vascular territories to suggest acute infarct. No abnormal intracranial calcifications are detected. No evidence of substantial vascular calcifica tions. The paranasal sinuses and mastoid air cells are well aerated without substantial findings. O rbits and globes are symmetric. Moderate rightward deviation of the nasal septum with a small spur. Pituitary fossa appears unremarkable. The calvarium is intact. No evidence of skull fracture. IMPRESSION: 1. No acute intracranial findings. 2. Mild small vessel ischemic changes.
--- NOTE | 2017-01-11 13:01 | CR ---
EXAMINATION: Two-view chest (AP and Lateral views). HISTORY: Syncope. FINDINGS: The trachea is midline. The cardiomediastinal silhouette is within normal limits. No pulmonary infil trates, effusions or pneumothorax. Left-sided pacemaker is noted. Osseous structures appear unremarkable. IMPRESSION: No acute cardiopulmonary process.
[2017-01-11] MEDS ORDERED: diphenhydrAMINE 50 MG/ML SDV IVPUSH ONE (13:23)
[2017-01-11] MEDS ORDERED: Metoclopramide 10 MG/2 ML SDV IV ONE (13:23)
[2017-01-11] MEDS ORDERED: LORazepam 2 MG/ML MDV IVPUSH ONE (13:24)
[2017-01-11] MEDS ORDERED: Ondansetron 4 MG Tab.DIS PO PRN (15:15)
[2017-01-11] MEDS ORDERED: Acetaminophen 325 MG Tab PO PRN (15:15)
[2017-01-11] MEDS ORDERED: Nitroglycerin 0.4 MG Tab.SL SL PRN (15:21)
[2017-01-11] MEDS ORDERED: Acetaminophen/HYDROcodone 325-10 MG Tab PO PRN (15:21)
[2017-01-11] MEDS ORDERED: Albuterol 8 GM Inhaler INH PRN (15:21)
[2017-01-11] MEDS: Nicotine 21 MG/24 Hr Patch TRDERM SCH (16:10)
--- NOTE | 2017-01-11 16:48 | PCM.PRNOTE ---
- Free Text/Narrative Note: Device interrogation 01/11/2017 BSC DDD battery 15 years LRL 60 bpm A leads sensing 5 mV capture threshold 0.8 mV@0.4 Impedance 64 ohms V leads sensing 15 mV Capture threshold 0.5 mV@0.4 no mode switching V paced < 1% A paced 10%
--- NOTE | 2017-01-11 17:05 | PCM.HP ---
<Amadou Fountain - Last Filed: 01/11/17 17:19> H&P History of Present Illness - General Date of Service: 01/11/17 Admit Problem/Dx: decreased level of consciousness Source of Information: Patient, Family (Nephew, MAYDA) History Limitations: Reports: No Limitations - History of Present Illness Initial Comments - Free Text/Narative: 66-year-old male with a history of bipolar disorder, dementia, coronary artery disease with pacemaker, hypothyroidism that is being admitted with decreased level of consciousness. The patient's nephew, MAYDA, who is the patient's power of criminal attorney, brought the patient into the ER today after the patient had a decreased level of consciousness while in a meeting at [facility] this morning. The nephew states that the patient woke up this morning, ate breakfast and took his morning medications without any problems and went to a meeting at 9 AM. During the meeting the patient was falling asleep easily even though he had a good night rest according to the nephew and began to have slow, slurred speech and gait instability. Nephew states that the patient had to be carried out of his meeting because he could not ambulate. The nephew and the patient notes that the patient fell because of his gait instability this morning and hit his head. The patient denies losing consciousness and doesn't remember falling. The nephew the patient states that approximately one week ago the patient met with his psychiatrist Dr. Patrick, in [place] to discuss changing the patient's medications. The nephew states that they were looking to have the patient admitted to an inpatient hospital so that his medications can be adjusted as the patient had been experiencing increased anxiety over the past week. The nephew states that the psychiatrist said that this was not reason enough to admit the patient and increased his gabapentin to 400 mg 3 times a day (previous was 300 mg 3 times a day). No other changes were made to the patient's medication. The nephew states that almost immediately with this medication change he noticed a change in the patient in terms of school behavior and decreased cognition. The nephew notes that there have been previous episodes like this with the patient and at those times his medications needed to be changed and once change the patient did better in terms of his mental status. The patient does have a current prescription for clonazepam 0.5 mg every 4 hours as needed for anxiety but that nephew states that he has been giving the patient 2-3 tabs at a time twice a day because of increased anxiety and he has been doing this over the last couple of months. Over that time period and with this dosing of clonazepam the patient is never had this decreased level of consciousness that he experienced in the ER today. The nephew is responsible for giving the patient his medications on a daily basis. The patient lives with his nephew. The patient notes that he does have a history of coronary artery disease and currently does have a pacemaker placed. He states he is unsure if he was diagnosed with an NV in the past or with a stroke. He does have a history of TIA. He has no history of seizure. He also notes intermittent parkinsonian-like symptoms secondary to his Latuda but currently takes amantadine to offset this. The patient has been on tLatuda for a 9 month period and states that this has helped him wake up in the morning with much more clear thoughts and not as drowsy. Patient does endorse some dizziness with movement of his head. The patient denies any other acute concerns including headaches, chest pain, palpitations, shortness of breath, wheezing, cough, abdominal pain, sclerotic PATIENT, diarrhea, numbness/tingling in the upper and lower extremities bilaterally. ER course: CBC and CMP are unremarkable. Initial troponin was negative. Amylase/lipase was negative. Urinalysis was normal. TSH/T4 were unremarkable. Chest x-ray and head CT were unremarkable. Vital signs are stable in the emergency room. Urine drug screen was positive for benzodiazepines. Blood alcohol level was normal. I also spoke with the patient's psychiatrist from [place] to find out what happened at the last patient visit. He states that he did increase the patient' s gabapentin to 4 mg 3 times a day and did not change any other medications. He states that the patient and his nephew did indeed ask for hospitalization secondary to anxiety but the physician did not think that this was an appropriate admission for hospitalization. He notes that the patient has presented previously to emergency rooms with similar symptoms. Left Knee Pain Score (Numeric/FACES): 4 - Related Data Allergies/Adverse Reactions: Allergies Allergy/AdvReac Type Severity Reaction Status Date / Time Penicillins Allergy Rash Verified 01/11/17 11:05 Home Medications: Home Meds ClonazePAM [KlonoPIN] 0.5 mg PO Q4H PRN 11/28/15 [History] Nitroglycerin [Nitrostat] 0.4 mg SL Q5M PRN 11/28/15 [History] Omeprazole 20 mg PO DAILY 11/28/15 [History] Albuterol Sulfate [Proair Respiclick] 2 puff IH Q4H PRN 01/31/16 [History] Aspirin [Adult Low Dose Aspirin EC] 81 mg PO DAILY 01/31/16 [History] Hydrocodone/Acetaminophen [Hydrocodon-Acetaminophn 10-325] 1 tab PO QID PRN [History] Umeclidinium [place] [Incruse Ellipta] 1 puff IH DAILY 01/31/16 [History] atorvaSTATin [Lipitor] 20 mg PO BEDTIME 01/31/16 [History] Amantadine [Symmetrel] 100 mg PO BID 04/27/16 [History] Fluticasone Propionate [Flovent HFA 220 MCG] 2 inh INH BID 04/27/16 [History] Docusate Sodium [Colace] 100 mg PO DAILY 08/19/16 [History] Lurasidone HCl [Latuda] 120 mg PO BID 08/19/16 [History] Tamsulosin [Flomax] 0.4 mg PO BIDPC 08/19/16 [History] Gabapentin [Neurontin] 400 mg PO TID 01/11/17 [History] Past Medical History - Past Health History Medical/Surgical History: Denies Medical/Surgical History HEENT History: Reports: None Cardiovascular History: Reports: Aneurysm, Arrhythmia, Hypertension, NV, Pacemaker, Other (See Below) Other Cardiovascular History: prior obstructive coronary disease noted on angiogram about four years ago by patient history Respiratory History: Reports: Asthma, Other (See Below) Other Respiratory History: on inhaler, but does not know why Gastrointestinal History: Reports: Other (See Below) Other Gastrointestinal History: liver disease Genitourinary History: Reports: None Musculoskeletal History: Reports: Back Pain, Chronic, Other (See Below) Other Musculoskeletal History: Chronic knee pain Neurological History: Reports: Alzheimers Disease, Other (See Below) Other Neuro History: being evaluated for parkinson's Psychiatric History: Reports: Anxiety, Bipolar, Depression Endocrine/Metabolic History: Reports: Diabetes, Type II Hematologic History: Reports: None Immunologic History: Reports: None Oncologic (Cancer) History: Reports: Other (See Below) Other Oncologic History: Testicular Cancer Dermatologic History: Reports: None - Infectious Disease History Infectious Disease History: Reports: Hepatitis C - Past Surgical History Head Surgeries/Procedures: Reports: None Cardiovascular Surgical History: Reports: Coronary Artery Bypass Male Surgical History: Reports: Other (See Below) Musculoskeletal Surgical History: Reports: Knee Replacement Social & Family History - Family History Family Medical History: Noncontributory - Tobacco Use Smoking Status *Q: Current Every Day Smoker Years of Tobacco use: 51 Packs/Tins Daily: 1.5 Used Tobacco, but Quit: No Second Hand Smoke Exposure: No - Caffeine Use Caffeine Use: Reports: Coffee - Alcohol Use Days Per Week of Alcohol Use: 1 Number of Drinks Per Day: 1 Total Drinks Per Week: 1 - Recreational Drug Use Recreational Drug Use: No - Living Situation & Occupation Living situation: Reports: Single, with Family Occupation: Disabled H&P Review of Systems - Review of Systems: Review Of Systems: See Below General: Reports: Weakness, Fatigue HEENT: Reports: No Symptoms Pulmonary: Reports: No Symptoms Cardiovascular: Reports: No Symptoms Gastrointestinal: Reports: No Symptoms Genitourinary: Reports: No Symptoms Musculoskeletal: Reports: No Symptoms Skin: Reports: No Symptoms Psychiatric: Denies: Suicidal Ideation, Homicidal Ideation Neurological: Reports: Dizziness, Difficulty Walking, Gait Disturbance Hematologic/Lymphatic: Reports: No Symptoms Immunologic: Reports: No Symptoms Exam - Exam Exam: See Below - Vital Signs Vital Signs: Last Vital Signs Temp 97.3 F 01/11/17 15:42 Pulse 60 01/11/17 15:42 Resp 16 01/11/17 15:42 BP 139/74 01/11/17 15:42 Pulse Ox 97 01/11/17 15:42 Weight: 99.79 kg - Exam Quality Assessment: DVT Prophylaxis (SCDs) General: Alert, Oriented, Cooperative HEENT: Conjunctiva Clear, Hearing Intact, Mucosa Moist & [place], Posterior Pharynx Clear, Pupils Reactive, PERRLA Neck: Supple, Trachea Midline, 2 Lungs: Clear to Auscultation, Normal Respiratory Effort Cardiovascular: Regular Rate, Regular Rhythm GI/Abdominal Exam: Normal Bowel Sounds, Soft, Non-Tender, No Organomegaly, No Distention, No Abnormal Bruit, No Mass, Pelvis Stable Extremities: Normal Inspection, Normal Range of Motion, Non-Tender, No Pedal Edema, Normal Capillary Refill Peripheral Pulses: 2+: Radial (L), Radial (R), Posterior Tibial (L), Posterior Tibial (R) Skin: Warm, Dry, Intact Neurological: Cranial Nerves Intact, Reflexes Equal Bilateral Neuro Extensive - Mental Status: Alert, Oriented x3, Normal Mood/Affect, Normal Cognition Neuro Extensive - Motor, Sensory, Reflexes: CN II-XII Intact, Normal Reflexes, Other (Tremor noted of the patient's lower lip.) Psychiatric: Alert, Normal Affect, Normal Mood - Patient Data Lab Results Last 24 hrs: Laboratory Results - last 24 hr 01/11/17 Range/Units 14:35 Ethyl Alcohol < 10.0 mg/dL Result Diagrams: 01/11/17 11:36 01/11/17 11:36 *Q Meaningful Use (ADM) - VTE *Q VTE Criteria *Q: - Stroke *Q Stroke Criteria *Q: - AMI *Q AMI Criteria *Q: - Problem List (1) Altered mental status SNOMED Code(s): 656445678 ICD Code: R41.82 - ALTERED MENTAL STATUS, UNSPECIFIED Status: Acute Priority: High Current Visit: Yes Problem List Initiated/Reviewed/Updated: No Orders Last 24hrs: Active Orders 24 hr Category Date Time Status Patient Status [ADT] Routine ADT 01/11/17 15:16 Active Antiembolic Devices [RC] PER UNIT ROUTINE Care 01/11/17 15:19 Active Blood Glucose Check, Bedside [RC] TIDAC Care 01/11/17 16:23 Active Cardiac Monitoring [RC] INTERMITTENT Care 01/11/17 15:17 Active Height and Weight [RC] DAILY Care 01/11/17 15:15 Active Intake and Output [RC] Q12H Care 01/11/17 15:17 Active Notify Provider Vital Signs [RC] ASDIRECTED Care 01/11/17 15:17 Active Oxygen Therapy [RC] PRN Care 01/11/17 15:16 Active Pulse Oximetry [RC] PRN Care 01/11/17 15:17 Active Up With Assistance [RC] ASDIRECTED Care 01/11/17 15:15 Active VTE/DVT Education [RC] PER UNIT ROUTINE Care 01/11/17 15:16 Active Vital Signs [RC] Q4H Care 01/11/17 15:16 Active Heart Healthy Diet [DIET] Diet 01/11/17 Dinner Active Acetaminophen [Tylenol] Med 01/11/17 15:15 Active 650 mg PO Q4H PRN Acetaminophen/HYDROcodone [Mcgrath 325-10 MG] Med 01/11/17 15:21 Active 1 tab PO QID PRN Albuterol [Ventolin HFA] Med 01/11/17 15:21 Active 0 gm INH Q4H PRN Amantadine [Symmetrel] Med 01/11/17 21:00 Active 100 mg PO BID Aspirin [Halfprin] Med 01/12/17 09:00 Active 81 mg PO DAILY Docusate Sodium [Colace] Med 01/12/17 09:00 Active 100 mg PO DAILY Fluticasone Propionate [Flovent HFA 220 MCG] Med 01/11/17 21:00 Active 0 gm INH BID Nicotine [Habitrol] Med 01/11/17 15:15 Active 21 mg TRDERM DAILY Nitroglycerin [Nitrostat] Med 01/11/17 15:21 Active 0.4 mg SL Q5M PRN Omeprazole Med 01/12/17 09:00 Active 20 mg PO DAILY Ondansetron [Zofran ODT] Med 01/11/17 15:15 Active 4 mg PO Q4H PRN Patient's Own Medication [Ptom] Med 01/12/17 09:00 Active 1 each INH DAILY Tamsulosin [Flomax] Med 01/11/17 18:00 Active 0.4 mg PO BIDPC atorvaSTATin [Lipitor] Med 01/11/17 21:00 Active 20 mg PO BEDTIME Sequential Compression Device [OM.PC] Per Unit Routine Oth 01/11/17 15:17 Ordered Resuscitation Status Routine Resus Stat 01/11/17 15:15 Ordered Medication Orders Acetaminophen (Tylenol) 650 mg PO Q4H PRN PRN Reason: Pain (Mild 1-3)/fever Hydrocodone Bitart/Acetaminophen ([place] 325-10 Mg) 1 tab PO QID PRN PRN Reason: Pain Albuterol (Ventolin Hfa) 0 gm INH Q4H PRN PRN Reason: shortness of breath/wheezing Amantadine HCl (Symmetrel) 100 mg PO BID ISAIAH Aspirin (Halfprin) 81 mg PO DAILY ISAIAH Atorvastatin Calcium (Lipitor) 20 mg PO BEDTIME ISAIAH Docusate Sodium (Colace) 100 mg PO DAILY ISAIAH Fluticasone Propionate (Flovent Hfa 220 Mcg) 0 gm INH BID [facility] Nicotine (Habitrol) 21 mg TRDERM DAILY [facility] Last Admin: 01/11/17 16:10 Dose: 21 mg Nitroglycerin (Nitrostat) 0.4 mg SL Q5M PRN PRN Reason: Chest Pain Omeprazole (Omeprazole) 20 mg PO DAILY [facility] Ondansetron HCl (Zofran Odt) 4 mg PO Q4H PRN PRN Reason: nausea, able to take PO Incruse Ellipta 1 each INH DAILY [facility] Tamsulosin [facility]) [facility]Plan Comment:: 66-year-old male admitted with altered level of consciousness. #1. Altered level of consciousness -CBC, CMP, initial troponin, urinalysis, TSH/T4, blood alcohol level, amylase/ lipase head CT, chest x-ray were all unremarkable. Urine drug screen showed positive benzodiazepines but the patient did take Klonopin this morning which is a daily medication for him. Patient took 3, 0.5 mg tablets of Klonopin this morning secondary to anxiety. His nephew gave him this medication. -Patient denies any nausea, vomiting or decreased oral intake. He does not appear to be dehydrated. Kidney function is normal. He will not be started on IV fluids. -Echocardiogram was done back in January of 2016 and showed ejection fraction of 55%. Given that the patient did have a near syncopal episode today, I will repeat his echocardiogram. Results are pending. -Hemoglobin A1c and lipid panel are also pending. Reviewing the patient's chart does show that he is a type II diabetic not currently on any type of insulin her diabetic regimen. -I have consult to Dr. Elio Armijo, psychiatrist to discuss the patient's current medication dosing. I am waiting for him to get back to me. -The patient's gabapentin, Clonopin and the teeth have all been held secondary to the patient's decreased level of consciousness. -Dr. Randhawa, the patient's bottling room worker has seen the patient and agrees with the plan. Discharge: One to 2 days pending improvement. <Duane Kapoor - Last Filed: 01/11/17 19:32> Exam - Vital Signs Vital Signs: Last Vital Signs Temp 36.3 C 01/11/17 15:42 Pulse 60 01/11/17 15:42 Resp 16 01/11/17 15:42 BP 139/74 01/11/17 15:42 Pulse Ox 97 01/11/17 15:42 - Patient Data Lab Results Last 24 hrs: Laboratory Results - last 24 hr 01/11/17 Range/Units 14:35 Ethyl Alcohol < 10.0 mg/dL Result Diagrams: 01/11/17 11:36 01/11/17 11:36 *Q Meaningful Use (ADM) - VTE *Q VTE Criteria *Q: - Stroke *Q Stroke Criteria *Q: - AMI *Q AMI Criteria *Q: Orders Last 24hrs: Active Orders 24 hr Category Date Time Status Patient Status [ADT] Routine ADT 01/11/17 15:16 Active Antiembolic Devices [RC] PER UNIT ROUTINE Care 01/11/17 15:19 Active Blood Glucose Check, Bedside [RC] TIDAC Care 01/11/17 16:23 Active Cardiac Monitoring [RC] INTERMITTENT Care 01/11/17 15:17 Active Height and Weight [RC] DAILY Care 01/11/17 15:15 Active Intake and Output [RC] Q12H Care 01/11/17 15:17 Active Notify Provider Vital Signs [RC] ASDIRECTED Care 01/11/17 15:17 Active Oxygen Therapy [RC] PRN Care 01/11/17 15:16 Active Pulse Oximetry [RC] PRN Care 01/11/17 15:17 Active Up With Assistance [RC] ASDIRECTED Care 01/11/17 15:15 Active VTE/DVT Education [RC] PER UNIT ROUTINE Care 01/11/17 15:16 Active Vital Signs [RC] Q4H Care 01/11/17 15:16 Active Heart Healthy Diet [DIET] Diet 01/11/17 Dinner Active Echo Comp wo Cont [US] Routine Exams 01/11/17 17:12 Ordered Acetaminophen [Tylenol] Med 01/11/17 15:15 Active 650 mg PO Q4H PRN Acetaminophen/HYDROcodone [Mcgrath 325-10 MG] Med 01/11/17 15:21 Active 1 tab PO QID PRN Albuterol [Ventolin HFA] Med 01/11/17 15:21 Active 0 gm INH Q4H PRN Amantadine [Symmetrel] Med 01/11/17 21:00 Active 100 mg PO BID Aspirin [Halfprin] Med 01/12/17 09:00 Active 81 mg PO DAILY Docusate Sodium [Colace] Med 01/12/17 09:00 Active 100 mg PO DAILY Fluticasone Propionate [Flovent HFA 220 MCG] Med 01/11/17 21:00 Active 0 gm INH BID Nicotine [Habitrol] Med 01/11/17 15:15 Active 21 mg TRDERM DAILY Nitroglycerin [Nitrostat] Med 01/11/17 15:21 Active 0.4 mg SL Q5M PRN Omeprazole Med 01/12/17 09:00 Active 20 mg PO DAILY Ondansetron [Zofran ODT] Med 01/11/17 15:15 Active 4 mg PO Q4H PRN Patient's Own Medication [Ptom] Med 01/12/17 09:00 Active 1 each INH DAILY Tamsulosin [Flomax] Med 01/11/17 18:00 Active 0.4 mg PO BIDPC atorvaSTATin [Lipitor] Med 01/11/17 21:00 Active 20 mg PO BEDTIME Sequential Compression Device [OM.PC] Per Unit Routine Oth 01/11/17 15:17 Ordered Resuscitation Status Routine Resus Stat 01/11/17 15:15 Ordered Medication Orders Acetaminophen (Tylenol) 650 mg PO Q4H PRN PRN Reason: Pain (Mild 1-3)/fever Hydrocodone Bitart/Acetaminophen ([place] 325-10 Mg) 1 tab PO QID PRN PRN Reason: Pain Last Admin: 01/11/17 17:10 Dose: 1 tab Albuterol (Ventolin Hfa) 0 gm INH Q4H PRN PRN Reason: shortness of breath/wheezing Amantadine HCl (Symmetrel) 100 mg PO BID [facility] Aspirin (Halfprin) 81 mg PO DAILY [facility] Atorvastatin Calcium (Lipitor) 20 mg PO BEDTIME ISAIAH Docusate Sodium (Colace) 100 mg PO DAILY [facility] Fluticasone Propionate (Flovent Hfa 220 Mcg) 0 gm INH BID [facility] Nicotine (Habitrol) 21 mg TRDERM DAILY ISAIAH Last Admin: 01/11/17 16:10 Dose: 21 mg Nitroglycerin (Nitrostat) 0.4 mg SL Q5M PRN PRN Reason: Chest Pain Omeprazole (Omeprazole) 20 mg PO DAILY [facility] Ondansetron HCl (Zofran Odt) 4 mg PO Q4H PRN PRN Reason: nausea, able to take PO Incruse Ellipta 1 each INH DAILY [facility] Tamsulosin HCl (Flomax) 0.4 mg PO BIDPC [facility] Last Admin: 01/11/17 17:10 Dose: 0.4 mg - Free Text/Narrative Note: fI have reviewed this patient, his labs and care plan. I have discussed his care in detail with Dr. Fountain.
[2017-01-11] MEDS: Tamsulosin 0.4 MG Cap.ER PO SCH (17:10)
--- NOTE | 2017-01-11 18:00 | CONS ---
DATE OF CONSULTATION: DATE OF : 1950 PRIMARY CARE PHYSICIAN: None PCP REASON FOR CONSULTATION: Duration of mental status, concern of cardiac causes. HISTORY OF PRESENT ILLNESS: This is a 66-year-old male, history of bipolar disorder, and on multiple psychiatric medications, history of sick sinus syndrome, as well as status post pacemaker. He has dyslipidemia, ascending aortic aneurysm, and anxiety, presented to the hospital at this time because of alteration in mental status. He has seen psychiatrist in [place] lately for the medical adjustment and it seems that his gabapentin was increased from 300 three times a day to 400 three times a day last week. However, also over the past 1-2 months, Latuda was increased from 80 to 120 once a day as well as clonazepam 0.5 three times a day, up to 6 times a day as well and today around 9 o'clock, he became lethalgic and may actually have fallen as well. Denied head trauma and he had some slurring speech, some shakiness on his left hand. When he is in the hospital, he is still talking, and however, he stated that he could not stand and according to his caregiver which is his nephew, his mental status is still altered and seemed to be similar as in the morning as well. No chest pain. No shortness of breath. PHYSICAL EXAMINATION: VITAL SIGNS: When he is here in the hospital, it was stable with a blood pressure 118/66, heart rate of 72, temperature 36.3, and O2 saturation 97% on room air. HEENT: No pallor. No jaundice. No JVD. HEART: Normal S1, S2. No murmur. LUNGS: Clear. ABDOMEN: Soft, and nontender. Bowel sounds present. No hepatosplenomegaly. EXTREMITIES: Legs, no edema. LABORATORY INVESTIGATION: CBC showed WBC 4, hematocrit 43, and platelets 119. Sodium 139, potassium 3.6, BUN 18, creatinine 1.2, glucose 125, and troponin less than 0.1. TSH is normal. Urinalysis is negative. Urine drug tox screening is positive for benzodiazepine. Pacemaker interrogation, it was functioning normally. PLAN: This is a 66-year-old male with history of sick sinus syndrome, status post dual - chamber pacemaker, ascending aortic aneurysm 4.7, history of possible seizure disorder, anxiety, bipolar disorder, multiple psychiatric medication, presented to the hospital with alteration in mental status, most likely related to post polypharmacy, and I would recommend to talk to psychiatrist for medication adjustment, and we will observe the patient in the hospital. They denied any seizure activities and I have a very low suspicion for cardiac causes for alteration in mental status. His pacemaker is functioning very well. NUHA / JARRELL /[id number] MTDKit
[2017-01-11] MEDS: Amantadine 100 MG Cap PO SCH (20:50)
[2017-01-11] MEDS: lamoTRIgine 100 MG Tab PO SCH (20:50)
[2017-01-11] MEDS ORDERED: atorvaSTATin 20 MG Tab PO SCH (21:00)
[2017-01-11] MEDS: Fluticasone Propionate 220 MCG/Puff 12 GM Inhaler INH SCH (21:52)
[2017-01-11] MEDS ORDERED: Lidocaine 2% Jelly 30 ML Tube ONE (23:12)
[2017-01-11] MEDS: Lidocaine 2% Jelly 30 ML Tube PRN (23:16)
[2017-01-12] MEDS: Lidocaine 2% Jelly 30 ML Tube PRN (04:35)
[2017-01-12] MEDS ORDERED: Docusate Sodium 100 MG Cap PO SCH (09:00)
[2017-01-12] MEDS ORDERED: Omeprazole 20 MG Cap.CR PO SCH (09:00)
[2017-01-12] MEDS ORDERED: LURASIDONE HCL 40 MG PO SCH (09:00)
[2017-01-12] MEDS ORDERED: Aspirin 81 MG Tab.EC PO SCH (09:00)
[2017-01-12] MEDS: Nicotine 21 MG/24 Hr Patch TRDERM SCH (09:04)
[2017-01-12] MEDS: Tamsulosin 0.4 MG Cap.ER PO SCH (09:04)
[2017-01-12] MEDS: lamoTRIgine 100 MG Tab PO SCH (09:05)
[2017-01-12] MEDS: Amantadine 100 MG Cap PO SCH (09:06)
[2017-01-12] MEDS: Fluticasone Propionate 220 MCG/Puff 12 GM Inhaler INH SCH (10:17)
--- NOTE | 2017-01-12 11:02 | PCM.PN ---
<Amadou Fountain - Last Filed: 01/12/17 11:04> - General Info Date of Service: 01/12/17 Admission Dx/Problem (Free Text): decreased level of consciousness Subjective Update: Sohail is doing well. No overnight events noted by nursing staff. He is alert and oriented x3. I did get him up and ambulate with him in his room and he had no dizziness, headaches and his gait stability was good. He did not require assistance with ambulation. He states that he feels much better since admission yesterday. He denies any other acute concerns including headache, dizziness, chest pain, palpitations or shortness of breath and wheezing, cough, abdominal pain, nausea vomiting or, fever. His nephew MAYDA is in the room with him and is requesting that the patient be seen by Dr. Armijo, psychiatrist, in order to discuss the patient's current medication dosage before being discharged. Patient is to be discharged later this afternoon after seeing Dr. Armijo. Functional Status: Reports: Tolerating Diet, Ambulating, Urinating - Patient Data Vitals - Most Recent: Last Vital Signs Temp 98.2 F 01/12/17 08:00 Pulse 64 01/12/17 08:00 Resp 16 01/12/17 08:00 BP 118/72 01/12/17 08:00 Pulse Ox 94 L 01/12/17 08:00 Weight - Most Recent: 99.5 kg I&O - Last 24 Hours: Intake & Output 01/11/17 01/12/17 01/12/17 22:59 06:59 14:59 Intake Total 150 950 Output Total 0 875 Balance 150 75 Lab Results Last 24 Hours: Laboratory Results - last 24 hr 01/11/17 01/11/17 Range/Units 14:35 16:50 POC Glucose 91 (60-110) mg/dL Ethyl Alcohol < 10.0 mg/dL Med Orders - Current: Current Medications Acetaminophen (Tylenol) 650 mg PO Q4H PRN PRN Reason: Pain (Mild 1-3)/fever Last Admin: 01/11/17 20:51 Dose: 650 mg Hydrocodone Bitart/Acetaminophen ([place] 325-10 Mg) 1 tab PO QID PRN PRN Reason: Pain Last Admin: 01/11/17 17:10 Dose: 1 tab Albuterol (Ventolin Hfa) 0 gm INH Q4H PRN PRN Reason: shortness of breath/wheezing Amantadine HCl (Symmetrel) 100 mg PO BID [facility] Last Admin: 01/12/17 09:06 Dose: 100 mg Aspirin (Halfprin) 81 mg PO DAILY [facility] Last Admin: 01/12/17 09:05 Dose: 81 mg Atorvastatin Calcium (Lipitor) 20 mg PO BEDTIME [facility] Last Admin: 01/11/17 20:51 Dose: 20 mg Docusate Sodium (Colace) 100 mg PO DAILY [facility] Last Admin: 01/12/17 09:04 Dose: 100 mg Fluticasone Propionate (Flovent Hfa 220 Mcg) 0 gm INH BID [facility] Last Admin: 01/12/17 10:17 Dose: 2 puff Lamotrigine (Lamotrigine) 200 mg PO BID [facility] Last Admin: 01/12/17 09:05 Dose: 200 mg Lidocaine HCl (Xylocaine 2% Jelly) 1 ml .XX Q3H PRN PRN Reason: Pain Last Admin: 01/12/17 04:35 Dose: 1 applic Nicotine (Habitrol) 21 mg TRDERM DAILY [facility] Last Admin: 01/12/17 09:04 Dose: 21 mg Nitroglycerin (Nitrostat) 0.4 mg SL Q5M PRN PRN Reason: Chest Pain Omeprazole (Omeprazole) 20 mg PO DAILY [facility] Last Admin: 01/12/17 09:05 Dose: 20 mg Ondansetron HCl (Zofran Odt) 4 mg PO Q4H PRN PRN Reason: nausea, able to take PO Incruse Ellipta 1 each INH DAILY [facility] Last Admin: 01/12/17 10:46 Dose: Not Given (Lurasidone Hcl [ (Latuda] 40 Mg)) 1 each PO QAM [facility] Last Admin: 01/12/17 09:06 Dose: 1 each (Lurasidone Hcl [ (Latuda] 80 Mg)) 1 each PO QPM [facility] Last Admin: 01/12/17 09:04 Dose: 0.4 mg Discontinued Medications Aspirin (Aspirin) 324 mg PO ONETIME ONE Stop: 01/11/17 11:16 Last Admin: 01/11/17 11:43 Dose: 324 mg Famotidine (Pepcid) 20 mg IVPUSH ONETIME ONE Stop: 01/11/17 11:16 Last Admin: 01/11/17 11:45 Dose: 20 mg Sodium Chloride (Normal Saline) 1,000 mls @ 999 mls/hr IV .Bolus ONE Stop: 01/11/17 12:20 Last Admin: 01/11/17 11:40 Dose: 999 mls/hr Ketorolac Tromethamine (Toradol) 30 mg IVPUSH ONETIME ONE Stop: 01/11/17 11:21 Last Admin: 01/11/17 11:44 Dose: 30 mg Lidocaine HCl (Xylocaine 2% Jelly) 30 ml .ROUTE .STK-MED ONE Stop: 01/11/17 23:13 - Exam Quality Assessment: DVT Prophylaxis (scds) General: Alert, Oriented, Cooperative, No Acute Distress HEENT: Pupils Equal, Pupils Reactive, EOMI, Mucous Membr. Moist/[place] Neck: Supple, Trachea Midline Lungs: Clear to Auscultation, Normal Respiratory Effort Cardiovascular: Regular Rate, Regular Rhythm GI/Abdominal Exam: Normal Bowel Sounds, Soft, Non-Tender, No Organomegaly, No Distention, No Abnormal Bruit, No Mass Extremities: Normal Inspection, Normal Range of Motion, Non-Tender, No Pedal Edema, Normal Capillary Refill Peripheral Pulses: 2+: Radial (L), Radial (R), Posterior Tibial (L), Posterior Tibial (R) Skin: Warm, Dry, Intact Wound/Incisions: Healing Well Neurological: No New Focal Deficit Psy/Mental Status: Alert, Normal Affect, Normal Mood - Problem List & Annotations (1) Altered mental status SNOMED Code(s): 160047138 Code(s): R41.82 - ALTERED MENTAL STATUS, UNSPECIFIED Status: Acute Priority: High Current Visit: Yes - Problem List Review Problem List Initiated/Reviewed/Updated: Yes - My Orders Last 24 Hours: My Active Orders 01/11/17 15:15 Height and Weight [RC] DAILY Up With Assistance [RC] ASDIRECTED Acetaminophen [Tylenol] 650 mg PO Q4H PRN Nicotine [Habitrol] 21 mg TRDERM DAILY Ondansetron [Zofran ODT] 4 mg PO Q4H PRN Resuscitation Status Routine 01/11/17 15:16 Patient Status [ADT] Routine Oxygen Therapy [RC] PRN VTE/DVT Education [RC] PER UNIT ROUTINE Vital Signs [RC] Q4H 01/11/17 15:17 Cardiac Monitoring [RC] INTERMITTENT Intake and Output [RC] Q12H Notify Provider Vital Signs [RC] ASDIRECTED Pulse Oximetry [RC] PRN Sequential Compression Device [OM.PC] Per Unit Routine 01/11/17 15:19 Antiembolic Devices [RC] PER UNIT ROUTINE 01/11/17 15:21 Acetaminophen/HYDROcodone [[place] 325-10 MG] 1 tab PO QID PRN Albuterol [Ventolin HFA] 0 gm INH Q4H PRN Nitroglycerin [Nitrostat] 0.4 mg SL Q5M PRN 01/11/17 16:23 Blood Glucose Check, Bedside [RC] TIDAC 01/11/17 17:12 Echo Comp wo Cont [US] Routine 01/11/17 18:00 Tamsulosin [Flomax] 0.4 mg PO BIDPC 01/11/17 20:31 Communication Order [RC] DAILY 01/11/17 21:00 Amantadine [Symmetrel] 100 mg PO BID Fluticasone Propionate [Flovent HFA 220 MCG] 0 gm INH BID atorvaSTATin [Lipitor] 20 mg PO BEDTIME lamoTRIgine 200 mg PO BID 01/11/17 Dinner Heart Healthy Diet [DIET] 01/12/17 09:00 Aspirin [Halfprin] 81 mg PO DAILY Docusate Sodium [Colace] 100 mg PO DAILY Omeprazole 20 mg PO DAILY Patient's Own Medication [Ptom] 1 each INH DAILY Patient's Own Medication [Ptom] 1 each PO QAM 01/12/17 18:00 Patient's Own Medication [Ptom] 1 each PO QPM - Plan Plan:: 66-year-old male admitted with altered level of consciousness. #1. Altered level of consciousness -Contacted Dr. Armijo, psychiatry, and am waiting to hear back from him. Once Dr. Armijo reviews the patient's medications and speaks with the patient, I believe he will be okay for discharge. Patient after okay with this. -Echocardiogram results are pending. Patient will get these as outpatient. -Lipid panel was unremarkable. -Dr. Randhawa, the patient's instructor of nursing has seen the patient and agrees with the plan. Discharge: One to 2 days pending improvement. <Duane Kapoor - Last Filed: 01/12/17 12:34> - Patient Data Vitals - Most Recent: Last Vital Signs Temp 36.8 C 01/12/17 08:00 Pulse 64 01/12/17 08:00 Resp 16 01/12/17 08:00 BP 118/72 01/12/17 08:00 Pulse Ox 94 L 01/12/17 08:00 I&O - Last 24 Hours: Intake & Output 01/11/17 01/12/17 01/12/17 22:59 06:59 14:59 Intake Total 150 950 Output Total 0 875 Balance 150 75 Lab Results Last 24 Hours: Laboratory Results - last 24 hr 01/11/17 01/11/17 Range/Units 14:35 16:50 POC Glucose 91 (60-110) mg/dL Ethyl Alcohol < 10.0 mg/dL Med Orders - Current: Current Medications Acetaminophen (Tylenol) 650 mg PO Q4H PRN PRN Reason: Pain (Mild 1-3)/fever Last Admin: 01/11/17 20:51 Dose: 650 mg Hydrocodone Bitart/Acetaminophen ([place] 325-10 Mg) 1 tab PO QID PRN PRN Reason: Pain Last Admin: 01/11/17 17:10 Dose: 1 tab Albuterol (Ventolin Hfa) 0 gm INH Q4H PRN PRN Reason: shortness of breath/wheezing Amantadine HCl (Symmetrel) 100 mg PO BID [facility] Last Admin: 01/12/17 09:06 Dose: 100 mg Aspirin (Halfprin) 81 mg PO DAILY [facility] Last Admin: 01/12/17 09:05 Dose: 81 mg Atorvastatin Calcium (Lipitor) 20 mg PO BEDTIME [facility] Last Admin: 01/11/17 20:51 Dose: 20 mg Docusate Sodium (Colace) 100 mg PO DAILY [facility] Last Admin: 01/12/17 09:04 Dose: 100 mg Fluticasone Propionate (Flovent Hfa 220 Mcg) 0 gm INH BID [facility] Last Admin: 01/12/17 10:17 Dose: 2 puff Lamotrigine (Lamotrigine) 200 mg PO BID [facility] Last Admin: 01/12/17 09:05 Dose: 200 mg Lidocaine HCl (Xylocaine 2% Jelly) 1 ml .XX Q3H PRN PRN Reason: Pain Last Admin: 01/12/17 04:35 Dose: 1 applic Nicotine (Habitrol) 21 mg TRDERM DAILY [facility] Last Admin: 01/12/17 09:04 Dose: 21 mg Nitroglycerin (Nitrostat) 0.4 mg SL Q5M PRN PRN Reason: Chest Pain Omeprazole (Omeprazole) 20 mg PO DAILY [facility] Last Admin: 01/12/17 09:05 Dose: 20 mg Ondansetron HCl (Zofran Odt) 4 mg PO Q4H PRN PRN Reason: nausea, able to take PO Incruse Ellipta 1 each INH DAILY [facility] Last Admin: 01/12/17 10:46 Dose: Not Given (Lurasidone Hcl [ (Latuda] 40 Mg)) 1 each PO QAM [facility] Last Admin: 01/12/17 09:06 Dose: 1 each (Lurasidone Hcl [ (Latuda] 80 Mg)) 1 each PO QPM [facility] Tamsulosin HCl (Flomax) 0.4 mg PO BIDPC [facility] Last Admin: 01/12/17 09:04 Dose: 0.4 mg Discontinued Medications Aspirin (Aspirin) 324 mg PO ONETIME ONE Stop: 01/11/17 11:16 Last Admin: 01/11/17 11:43 Dose: 324 mg Famotidine (Pepcid) 20 mg IVPUSH ONETIME ONE Stop: 01/11/17 11:16 Last Admin: 01/11/17 11:45 Dose: 20 mg Sodium Chloride (Normal Saline) 1,000 mls @ 999 mls/hr IV .Bolus ONE Stop: 01/11/17 12:20 Last Admin: 01/11/17 11:40 Dose: 999 mls/hr Ketorolac Tromethamine (Toradol) 30 mg IVPUSH ONETIME ONE Stop: 01/11/17 11:21 Last Admin: 01/11/17 11:44 Dose: 30 mg Lidocaine HCl (Xylocaine 2% Jelly) 30 ml .ROUTE .STK-MED ONE Stop: 01/11/17 23:13 - My Orders Last 24 Hours: My Active Orders 01/11/17 22:09 Lidocaine 2% [Xylocaine 2% Jelly] 1 ml .XX Q3H PRN - Free Text/Narrative Note: I have observed this patient, looked at his data and have discussed his care with Dr. Fountain. I agree with the assessments and plan.
[2017-01-12 14:04] VITALS: BP 104/75
[2017-01-12] MEDS ORDERED: LURASIDONE HCL 80 MG PO SCH (18:00)
--- NOTE | 2017-01-15 14:26 | ECHO ---
EXAM DATE: 01/11/17 PATIENT'S AGE: 66 The echocardiogram report can be seen in this patient's EMR (Electronic Medical Record) in the Reports section. The report has also been scanned into PACS. RAHEEM
--- NOTE | 2017-02-07 16:45 | PCM.DCSUM1 ---
<Amadou Fountain - Last Filed: 02/07/17 16:39> Discharge Summary - Hospital Course Free Text/Narrative:: Admission diagnosis: #1. Decreased level of consciousness Discharge diagnosis: #1. Decreased level of consciousness, resolved 66-year-old male that was admitted secondary to decreased level of consciousness suspected to be secondary to polypharmacy. Patient is on multiple sedating medications including Klonopin, gabapentin and also takes Latuda for bipolar disorder. Patient recently had his gabapentin increased to 400 mg 3 times a day by his psychiatrist in [place]. Patient also has been taking 3 tabs of 0.5 mg Klonopin twice a day secondary to anxiety. These medications are being given by the patient's nephew. Upon admission all sedating medications were held including Klonopin and gabapentin. Altered level of consciousness resolved while these medications were held. Head CT, chest x-ray, CBC, CMP, troponin, UA, TSH, T4, ethanol level, amylase, lipase, lipid panel were all unremarkable. Drug screen was positive for benzodiazepines secondary to the patient's daily Ativan use. Repeat echocardiogram was similar to echocardiogram in 2016 showing an ejection fraction of 55-60%. Patient does have an extensive cardiac history with sick sinus syndrome requiring pacemaker he also has an ascending aortic aneurysm of 4.[address] Pantoja from cardiology was consulted and did not think that the patient's altered level of consciousness was of cardiac origin and had no recommendations from a cardiac standpoint. I did speak with Dr. Armijo from psychiatry in terms of the patient's medications and he recommended reducing the patient's daily gabapentin from 400 mg 3 times a day to 300 mg 3 times a day and taking Klonopin 0.5 mg with one tab 3 times a day. He also recommended that the patient follow-up with Yumiko Perez our mental health provider here in [place]. At the time of discharge the patient' s altered level of consciousness had resolved and he was tolerating oral intake , voiding appropriately, ambulating without assistance and denied any chest pain , palpitations, shortness of breath, wheezing, cough, abdominal pain, nausea, vomiting, cause patient, diarrhea, headache, dizziness. - Discharge Data Discharge Date: 01/12/17 Discharge Disposition: Home, Self-Care 01 Condition: Fair - Discharge Diagnosis/Problem(s) (1) Altered mental status SNOMED Code(s): 632048221 ICD Code: R41.82 - ALTERED MENTAL STATUS, UNSPECIFIED Status: Acute Priority: High - Patient Instructions Diet: Heart Healthy Diet Activity: As Tolerated Driving: Do Not Drive Showering/Bathing: May Shower Notify Provider of: Fever, Increased Pain, Nausea and/or Vomiting - Discharge Plan Prescriptions/Med Rec: Gabapentin [Gralise] 300 mg PO TID #90 tab Home Medications: Home Meds Nitroglycerin [Nitrostat] 0.4 mg SL Q5M PRN 11/28/15 [History] Omeprazole 20 mg PO DAILY 11/28/15 [History] Aspirin [Adult Low Dose Aspirin EC] 81 mg PO DAILY 01/31/16 [History] Umeclidinium Scalf [Incruse Ellipta] 1 puff IH DAILY 01/31/16 [History] atorvaSTATin [Lipitor] 20 mg PO BEDTIME 01/31/16 [History] Amantadine [Symmetrel] 100 mg PO BID 04/27/16 [History] Fluticasone Propionate [Flovent HFA 220 MCG] 2 inh INH BID 04/27/16 [History] Tamsulosin [Flomax] 0.4 mg PO DAILY 08/19/16 [History] Lurasidone HCl [Latuda] 80 mg PO QPM 01/11/17 [History] Ondansetron [Zofran] 4 mg PO Q8H PRN 01/11/17 [History] lamoTRIgine 200 mg PO BID 01/11/17 [History] Gabapentin [Gralise] 300 mg PO TID #90 tab 01/12/17 [Rx] ClonazePAM [KlonoPIN] 0.5 mg PO Q4HR PRN 01/15/17 [History] traMADol [Ultram] 50 mg PO Q8H PRN #12 tablet 01/23/17 [Rx] Patient Handouts: Gabapentin capsules or tablets, Confusion Referrals: Liz Arteaga NP [Nurse Practitioner] - Cameron Vázquez MD [Physician] - - Discharge Summary/Plan Comment DC Time >30 min.: No Discharge Summary/Plan Comment: Admission diagnosis: #1. Decreased level of consciousness Discharge diagnosis: #1. Decreased level of consciousness, resolved 66-year-old male that was admitted secondary to decreased level of consciousness suspected to be secondary to polypharmacy. Patient is on multiple sedating medications including Klonopin, gabapentin and also takes Latuda for bipolar disorder. Patient recently had his gabapentin increased to 400 mg 3 times a day by his psychiatrist in [place]. Patient also has been taking 3 tabs of 0.5 mg Klonopin twice a day secondary to anxiety. These medications are being given by the patient's nephew. Upon admission all sedating medications were held including Klonopin and gabapentin. Altered level of consciousness resolved while these medications were held. Head CT, chest x-ray, CBC, CMP, troponin, UA, TSH, T4, ethanol level, amylase, lipase, lipid panel were all unremarkable. Drug screen was positive for benzodiazepines secondary to the patient's daily Ativan use. Repeat echocardiogram was similar to echocardiogram in 2016 showing an ejection fraction of 55-60%. Patient does have an extensive cardiac history with sick sinus syndrome requiring pacemaker he also has an ascending aortic aneurysm of 4.[address] Pantoaj from cardiology was consulted and did not think that the patient's altered level of consciousness was of cardiac origin and had no recommendations from a cardiac standpoint. I did speak with Dr. Armijo from psychiatry in terms of the patient's medications and he recommended reducing the patient's daily gabapentin from 400 mg 3 times a day to 300 mg 3 times a day and taking Klonopin 0.5 mg with one tab 3 times a day. He also recommended that the patient follow-up with Yumiko Perez our mental health provider here in [place]. At the time of discharge the patient' s altered level of consciousness had resolved and he was tolerating oral intake , voiding appropriately, ambulating without assistance and denied any chest pain , palpitations, shortness of breath, wheezing, cough, abdominal pain, nausea, vomiting, cause patient, diarrhea, headache, dizziness. Discharge plan: #1. Decrease gabapentin to 300 mg 3 times a day. #2. Take Klonopin 0.5 mg 3 times a day as opposed to 3 tabs of 0.5 mg Klonopin twice a day. #3. Continue all other medications as currently prescribed. #4. Follow-up with your PCP, Dr. Vázquez, as soon as possible. #5. Patient was given the number to set up an appointment with our mental health provider, Sarah Arteaga. Patient and the patient's nephew both voiced that they would set up an appointment. - Patient Data Vitals - Most Recent: Last Vital Signs Temp 97.8 F 01/12/17 12:00 Pulse 64 01/12/17 12:00 Resp 18 01/12/17 12:00 BP 104/75 01/12/17 12:00 Pulse Ox 96 01/12/17 12:00 Weight - Most Recent: 99.5 kg Med Orders - Current: Current Medications Discontinued Medications Acetaminophen (Tylenol) 650 mg PO Q4H PRN PRN Reason: Pain (Mild 1-3)/fever Last Admin: 01/11/17 20:51 Dose: 650 mg Hydrocodone Bitart/Acetaminophen (Rainbow 325-10 Mg) 1 tab PO QID PRN PRN Reason: Pain Last Admin: 01/11/17 17:10 Dose: 1 tab Albuterol (Ventolin Hfa) 0 gm INH Q4H PRN PRN Reason: shortness of breath/wheezing Amantadine HCl (Symmetrel) 100 mg PO BID [facility] Last Admin: 01/12/17 09:06 Dose: 100 mg Aspirin (Aspirin) 324 mg PO ONETIME ONE Stop: 01/11/17 11:16 Last Admin: 01/11/17 11:43 Dose: 324 mg Aspirin (Halfprin) 81 mg PO DAILY [facility] Last Admin: 01/12/17 09:05 Dose: 81 mg Atorvastatin Calcium (Lipitor) 20 mg PO BEDTIME [facility] Last Admin: 01/11/17 20:51 Dose: 20 mg Docusate Sodium (Colace) 100 mg PO DAILY [facility] Last Admin: 01/12/17 09:04 Dose: 100 mg Famotidine (Pepcid) 20 mg IVPUSH ONETIME ONE Stop: 01/11/17 11:16 Last Admin: 01/11/17 11:45 Dose: 20 mg Fluticasone Propionate (Flovent Hfa 220 Mcg) 0 gm INH BID [facility] Last Admin: 01/12/17 10:17 Dose: 2 puff Sodium Chloride (Normal Saline) 1,000 mls @ 999 mls/hr IV .Bolus ONE Stop: 01/11/17 12:20 Last Admin: 01/11/17 11:40 Dose: 999 mls/hr Ketorolac Tromethamine (Toradol) 30 mg IVPUSH ONETIME ONE Stop: 01/11/17 11:21 Last Admin: 01/11/17 11:44 Dose: 30 mg Lamotrigine (Lamotrigine) 200 mg PO BID [facility] Last Admin: 01/12/17 09:05 Dose: 200 mg Lidocaine HCl (Xylocaine 2% Jelly) 1 ml .XX Q3H PRN PRN Reason: Pain Last Admin: 01/12/17 04:35 Dose: 1 applic Lidocaine HCl (Xylocaine 2% Jelly) 30 ml .ROUTE .STK-MED ONE Stop: 01/11/17 23:13 Nicotine (Habitrol) 21 mg TRDERM DAILY [facility] Last Admin: 01/12/17 09:04 Dose: 21 mg Nitroglycerin (Nitrostat) 0.4 mg SL Q5M PRN PRN Reason: Chest Pain Omeprazole (Omeprazole) 20 mg PO DAILY [facility] Last Admin: 01/12/17 09:05 Dose: 20 mg Ondansetron HCl (Zofran Odt) 4 mg PO Q4H PRN PRN Reason: nausea, able to take PO Incruse Ellipta 1 each INH DAILY [facility] Last Admin: 01/12/17 10:46 Dose: Not Given (Lurasidone Hcl [ (Latuda] 40 Mg)) 1 each PO QAM [facility] Last Admin: 01/12/17 09:06 Dose: 1 each (Lurasidone Hcl [ (Latuda] 80 Mg)) 1 each PO QPM [facility] Tamsulosin HCl (Flomax) 0.4 mg PO BIDPC [facility] Last Admin: 01/12/17 09:04 Dose: 0.4 mg *Q Meaningful Use (DIS) - VTE *Q VTE Criteria *Q: - Stroke *Q Stroke Criteria *Q: - AMI *Q AMI Criteria *Q: <Duane Kapoor - Last Filed: 02/07/17 23:41> - Patient Data Vitals - Most Recent: Last Vital Signs Temp 36.6 C 01/12/17 12:00 Pulse 64 01/12/17 12:00 Resp 18 01/12/17 12:00 BP 104/75 01/12/17 12:00 Pulse Ox 96 01/12/17 12:00 Med Orders - Current: Current Medications Discontinued Medications Acetaminophen (Tylenol) 650 mg PO Q4H PRN PRN Reason: Pain (Mild 1-3)/fever Last Admin: 01/11/17 20:51 Dose: 650 mg Hydrocodone Bitart/Acetaminophen (Rainbow 325-10 Mg) 1 tab PO QID PRN PRN Reason: Pain Last Admin: 01/11/17 17:10 Dose: 1 tab Albuterol (Ventolin Hfa) 0 gm INH Q4H PRN PRN Reason: shortness of breath/wheezing Amantadine HCl (Symmetrel) 100 mg PO BID [facility] Last Admin: 01/12/17 09:06 Dose: 100 mg Aspirin (Aspirin) 324 mg PO ONETIME ONE Stop: 01/11/17 11:16 Last Admin: 01/11/17 11:43 Dose: 324 mg Aspirin (Halfprin) 81 mg PO DAILY [facility] Last Admin: 01/12/17 09:05 Dose: 81 mg Atorvastatin Calcium (Lipitor) 20 mg PO BEDTIME [facility] Last Admin: 01/11/17 20:51 Dose: 20 mg Docusate Sodium (Colace) 100 mg PO DAILY [facility] Last Admin: 01/12/17 09:04 Dose: 100 mg Famotidine (Pepcid) 20 mg IVPUSH ONETIME ONE Stop: 01/11/17 11:16 Last Admin: 01/11/17 11:45 Dose: 20 mg Fluticasone Propionate (Flovent Hfa 220 Mcg) 0 gm INH BID [facility] Last Admin: 01/12/17 10:17 Dose: 2 puff Sodium Chloride (Normal Saline) 1,000 mls @ 999 mls/hr IV .Bolus ONE Stop: 01/11/17 12:20 Last Admin: 01/11/17 11:40 Dose: 999 mls/hr Ketorolac Tromethamine (Toradol) 30 mg IVPUSH ONETIME ONE Stop: 01/11/17 11:21 Last Admin: 01/11/17 11:44 Dose: 30 mg Lamotrigine (Lamotrigine) 200 mg PO BID [facility] Last Admin: 01/12/17 09:05 Dose: 200 mg Lidocaine HCl (Xylocaine 2% Jelly) 1 ml .XX Q3H PRN PRN Reason: Pain Last Admin: 01/12/17 04:35 Dose: 1 applic Lidocaine HCl (Xylocaine 2% Jelly) 30 ml .ROUTE .STK-MED ONE Stop: 01/11/17 23:13 Nicotine (Habitrol) 21 mg TRDERM DAILY [facility] Last Admin: 01/12/17 09:04 Dose: 21 mg Nitroglycerin (Nitrostat) 0.4 mg SL Q5M PRN PRN Reason: Chest Pain Omeprazole (Omeprazole) 20 mg PO DAILY [facility] Last Admin: 01/12/17 09:05 Dose: 20 mg Ondansetron HCl (Zofran Odt) 4 mg PO Q4H PRN PRN Reason: nausea, able to take PO Incruse Ellipta 1 each INH DAILY [facility] Last Admin: 01/12/17 10:46 Dose: Not Given (Lurasidone Hcl [ (Latuda] 40 Mg)) 1 each PO QAM [facility] Last Admin: 01/12/17 09:06 Dose: 1 each (Lurasidone Hcl [ (Latuda] 80 Mg)) 1 each PO QPM [facility] Tamsulosin HCl (Flomax) 0.4 mg PO BIDPC [facility] Last Admin: 01/12/17 09:04 Dose: 0.4 mg *Q Meaningful Use (DIS) - VTE *Q VTE Criteria *Q: - Stroke *Q Stroke Criteria *Q: - AMI *Q AMI Criteria *Q: - Free Text/Narrative Note: Dr. Washington Kapoor MD notes: I saw this patient on the day of discharge. I agree with Dr. Fountain's note, assessment and plan.
== END 2017-01-12 14:20 | disposition home or self-care (01) ==
LOC: MW.ED 10:56 → MW.MS 14:06
PROVIDERS: ADMIT Family Medicine; ATTEND Family Medicine
DX: R41.82 Altered mental status, unspecified (principal); I10 Essential (primary) hypertension; I25.2 Old myocardial infarction; J45.909 Unspecified asthma, uncomplicated; I25.10 Atherosclerotic heart disease of native coronary artery without angina pectoris; G30.9 Alzheimer's disease, unspecified; F02.80 Dementia in other diseases classified elsewhere, unspecified severity, without behavioral disturbance, psychotic disturbance, mood disturbance, and anxiety; F41.9 Anxiety disorder, unspecified; F31.9 Bipolar disorder, unspecified; E11.9 Type 2 diabetes mellitus without complications; F17.210 Nicotine dependence, cigarettes, uncomplicated; E78.5 Hyperlipidemia, unspecified; I49.5 Sick sinus syndrome; Z85.47 Personal history of malignant neoplasm of testis; Z86.19 Personal history of other infectious and parasitic diseases; Z79.82 Long term (current) use of aspirin; Z88.0 Allergy status to penicillin; Z79.51 Long term (current) use of inhaled steroids; Z79.899 Other long term (current) drug therapy; Z95.0 Presence of cardiac pacemaker; Z95.1 Presence of aortocoronary bypass graft; Z96.659 Presence of unspecified artificial knee joint
CPT/HCPCS: 36415; 70450; 71020; 80053; 80061; 80305; 81001; 82150; 82962; 83690; 84439; 84443; 84484; 85025; 93005; 93306; 96361; 96374; 96375; 99285; A9270; G0378; G0480; J1885; J7040; 99284

== ENCOUNTER 2017-01-15 11:12 | Emergency (ER) | payer MEDICARE, MEDICAID ==
[2017-01-15] MEDS ORDERED: Sodium Chloride 0.9% 1,000 ML IV ONE (12:07)
[2017-01-15 12:30] LABS: CHLORIDE,CL 103 mmol/L (98-110); SODIUM,NA 140 mmol/L (136-146)
--- NOTE | 2017-01-15 13:35 | PCM.HP ---
H&P History of Present Illness - Related Data Allergies/Adverse Reactions: Allergies Allergy/AdvReac Type Severity Reaction Status Date / Time Penicillins Allergy Rash Verified 01/15/17 11:32 Home Medications: Home Meds Nitroglycerin [Nitrostat] 0.4 mg SL Q5M PRN 11/28/15 [History] Omeprazole 20 mg PO DAILY 11/28/15 [History] Aspirin [Adult Low Dose Aspirin EC] 81 mg PO DAILY 01/31/16 [History] Umeclidinium [place] [Incruse Ellipta] 1 puff IH DAILY 01/31/16 [History] atorvaSTATin [Lipitor] 20 mg PO BEDTIME 01/31/16 [History] Amantadine [Symmetrel] 100 mg PO BID 04/27/16 [History] Fluticasone Propionate [Flovent HFA 220 MCG] 2 inh INH BID 04/27/16 [History] Tamsulosin [Flomax] 0.4 mg PO DAILY 08/19/16 [History] Lurasidone HCl [Latuda] 80 mg PO QPM 01/11/17 [History] Ondansetron [Zofran] 4 mg PO Q8H PRN 01/11/17 [History] lamoTRIgine 200 mg PO BID 01/11/17 [History] Gabapentin [Gralise] 300 mg PO TID #90 tab 01/12/17 [Rx] ClonazePAM [KlonoPIN] 0.5 mg PO Q4HR PRN 01/15/17 [History] Past Medical History - Past Health History Medical/Surgical History: Denies Medical/Surgical History HEENT History: Reports: None Cardiovascular History: Reports: Aneurysm, Arrhythmia, Hypertension, [place], Pacemaker, Other (See Below) Other Cardiovascular History: prior obstructive coronary disease noted on angiogram about four years ago by patient history Respiratory History: Reports: Asthma, Other (See Below) Other Respiratory History: on inhaler, but does not know why Gastrointestinal History: Reports: Other (See Below) Other Gastrointestinal History: liver disease Genitourinary History: Reports: None Musculoskeletal History: Reports: Back Pain, Chronic, Other (See Below) Other Musculoskeletal History: Chronic knee pain Neurological History: Reports: Alzheimers Disease, Other (See Below) Other Neuro History: being evaluated for parkinson's Psychiatric History: Reports: Anxiety, Bipolar, Depression Endocrine/Metabolic History: Reports: Diabetes, Type II Hematologic History: Reports: None Immunologic History: Reports: None Oncologic (Cancer) History: Reports: Other (See Below) Other Oncologic History: Testicular Cancer Dermatologic History: Reports: None - Infectious Disease History Infectious Disease History: Reports: Hepatitis C - Past Surgical History Head Surgeries/Procedures: Reports: None Cardiovascular Surgical History: Reports: Coronary Artery Bypass Male Surgical History: Reports: Other (See Below) Musculoskeletal Surgical History: Reports: Knee Replacement Social & Family History - Family History Family Medical History: Noncontributory - Tobacco Use Smoking Status *Q: Current Status Unknown Years of Tobacco use: 51 Packs/Tins Daily: 1.5 Used Tobacco, but Quit: No Second Hand Smoke Exposure: No - Caffeine Use Caffeine Use: Reports: None - Alcohol Use Days Per Week of Alcohol Use: 1 Number of Drinks Per Day: 1 Total Drinks Per Week: 1 - Recreational Drug Use Recreational Drug Use: No - Living Situation & Occupation Living situation: Reports: Single, with Family Occupation: Disabled Exam - Vital Signs Vital Signs: Last Vital Signs Temp 36.5 C 01/15/17 12:42 Pulse 61 01/15/17 12:42 Resp 17 01/15/17 12:42 BP 114/77 01/15/17 12:42 Pulse Ox 97 01/15/17 12:42 Weight: 102 kg - Patient Data Lab Results Last 24 hrs: Laboratory Results - last 24 hr 01/15/17 01/15/17 Range/Units 11:50 11:50 WBC 4.37 (4.0-11.0) K/uL RBC 5.27 (4.50-5.90) M/uL Hgb 15.5 (13.0-17.0) g/dL Hct 46.2 (38.0-50.0) % MCV 87.7 (80.0-98.0) fL MCH 29.4 (27.0-32.0) pg MCHC 33.5 (31.0-37.0) g/dL RDW Std Deviation 44.7 (28.0-62.0) fl RDW Coeff of [place] 14 (11.0-15.0) % Plt Count 125 L (150-400) K/uL MPV 9.20 (7.40-12.00) fL Neut % (Auto) 69.5 (48.0-80.0) % Lymph % (Auto) 21.5 (16.0-40.0) % [place] % (Auto) 6.2 (0.0-15.0) % Eos % (Auto) 2.3 (0.0-7.0) % Baso % (Auto) 0.5 (0.0-1.5) % Neut # (Auto) 3.0 (1.4-5.7) K/uL Lymph # (Auto) 0.9 (0.6-2.4) K/uL [place] # (Auto) 0.3 (0.0-0.8) K/uL Eos # (Auto) 0.1 (0.0-0.7) K/uL Baso # (Auto) 0.0 (0.0-0.1) K/uL Nucleated RBC % 0.0 /100WBC Nucleated RBCs # 0 K/uL Sodium 140 (136-146) mmol/L Potassium 4.3 (3.5-5.1) mmol/L Chloride 103 (98-110) mmol/L Carbon Dioxide 28 (21-31) mmol/L BUN 15 (6.0-23.0) mg/dL Creatinine 1.1 (0.6-1.5) mg/dL Est Cr Clr Drug Dosing 68.45 mL/min Estimated GFR (MDRD) > 60.0 ml/min Glucose 95 (60-110) mg/dL Calcium 9.7 (8.8-10.8) mg/dL Total Bilirubin 0.6 (0.1-1.5) mg/dL AST 16 (5-40) IU/L ALT 15 (8-54) IU/L Alkaline Phosphatase 115 (40-150) Total Protein 7.1 (6.0-8.0) g/dL Albumin 4.5 (3.4-4.8) g/dL Globulin 2.6 (2.0-3.5) g/dL Albumin/Globulin Ratio 1.7 (1.3-2.8) Result Diagrams: 01/15/17 11:50 01/15/17 11:50 *Q Meaningful Use (ADM) - VTE *Q VTE Criteria *Q: - Stroke *Q Stroke Criteria *Q: - AMI *Q AMI Criteria *Q:
--- NOTE | 2017-01-15 16:09 | EDM.PDOC ---
ED HPI GENERAL MEDICAL PROBLEM - General Chief Complaint: Neurological Problem Stated Complaint: WEAKNESS Time Seen by Provider: 01/15/17 11:40 Source of Information: Reports: Patient, Family History Limitations: Reports: No Limitations - History of Present Illness INITIAL COMMENTS - FREE TEXT/NARRATIVE: History of present illness: [66-year-old male brought back in by nephew with concerns of continued weakness despite some medication changes. Patient has numerous medications that he takes and nephew feels concerned that this polypharmacy is contributing to his uncles declined.] Review of systems: As per history of present illness and below otherwise all systems reviewed and negative. Past medical history: As per history of present illness and as reviewed below otherwise noncontributory. Surgical history: As per history of present illness and as reviewed below otherwise noncontributory. Social history: No reported history of drug or alcohol abuse. Family history: As per history of present illness and as reviewed below otherwise noncontributory. Physical exam: HEENT: Atraumatic, normocephalic, pupils reactive, negative for conjunctival pallor or scleral icterus, mucous membranes moist, throat clear, neck supple, nontender, trachea midline. Lungs: Clear to auscultation, breath sounds equal bilaterally, chest nontender. Heart: S1S2, regular, negative for clicks, rubs, or JVD. Abdomen: Soft, nondistended, nontender. Negative for masses or hepatosplenomegaly. Negative for costovertebral tenderness. Pelvis: Stable nontender. Genitourinary: Deferred. Rectal: Deferred. Extremities: Atraumatic, negative for cords or calf pain. Neurovascular unremarkable. Neuro: Awake, alert, oriented. Cranial nerves II through XII unremarkable. Cerebellum unremarkable. Motor and sensory unremarkable throughout. Exam nonfocal. Global assessment is benign save the subjective complaint as noted in history of present illness Patient has progressive weakness and troubles performing ADLs and nephew feels this is consistent with concerns with all the medications he takes Diagnostics: [EC, CMP] Therapeutics: [] Impression: [Weakness, polypharmacy] Plan: [Transfer] Definitive disposition and diagnosis as appropriate pending reevaluation and review of above. - Related Data Allergies Allergy/AdvReac Type Severity Reaction Status Date / Time Penicillins Allergy Rash Verified 01/15/17 11:32 Home Meds: Home Meds Nitroglycerin [Nitrostat] 0.4 mg SL Q5M PRN 11/28/15 [History] Omeprazole 20 mg PO DAILY 11/28/15 [History] Aspirin [Adult Low Dose Aspirin EC] 81 mg PO DAILY 01/31/16 [History] Umeclidinium [place] [Incruse Ellipta] 1 puff IH DAILY 01/31/16 [History] atorvaSTATin [Lipitor] 20 mg PO BEDTIME 01/31/16 [History] Amantadine [Symmetrel] 100 mg PO BID 04/27/16 [History] Fluticasone Propionate [Flovent HFA 220 MCG] 2 inh INH BID 04/27/16 [History] Tamsulosin [Flomax] 0.4 mg PO DAILY 08/19/16 [History] Lurasidone HCl [Latuda] 80 mg PO QPM 01/11/17 [History] Ondansetron [Zofran] 4 mg PO Q8H PRN 01/11/17 [History] lamoTRIgine 200 mg PO BID 01/11/17 [History] Gabapentin [Gralise] 300 mg PO TID #90 tab 01/12/17 [Rx] ClonazePAM [KlonoPIN] 0.5 mg PO Q4HR PRN 01/15/17 [History] Past Medical History - Past Health History Medical/Surgical History: Denies Medical/Surgical History HEENT History: Reports: None Cardiovascular History: Reports: Aneurysm, Arrhythmia, Hypertension, [place], Pacemaker, Other (See Below) Other Cardiovascular History: prior obstructive coronary disease noted on angiogram about four years ago by patient history Respiratory History: Reports: Asthma, Other (See Below) Other Respiratory History: on inhaler, but does not know why Gastrointestinal History: Reports: Other (See Below) Other Gastrointestinal History: liver disease Genitourinary History: Reports: None Musculoskeletal History: Reports: Back Pain, Chronic, Other (See Below) Other Musculoskeletal History: Chronic knee pain Neurological History: Reports: Alzheimers Disease, Other (See Below) Other Neuro History: being evaluated for parkinson's Psychiatric History: Reports: Anxiety, Bipolar, Depression Endocrine/Metabolic History: Reports: Diabetes, Type II Hematologic History: Reports: None Immunologic History: Reports: None Oncologic (Cancer) History: Reports: Other (See Below) Other Oncologic History: Testicular Cancer Dermatologic History: Reports: None - Infectious Disease History Infectious Disease History: Reports: Hepatitis C - Past Surgical History Head Surgeries/Procedures: Reports: None Cardiovascular Surgical History: Reports: Coronary Artery Bypass Male Surgical History: Reports: Other (See Below) Musculoskeletal Surgical History: Reports: Knee Replacement Social & Family History - Family History Family Medical History: Noncontributory - Tobacco Use Smoking Status *Q: Current Status Unknown Years of Tobacco use: 51 Packs/Tins Daily: 1.5 Used Tobacco, but Quit: No Second Hand Smoke Exposure: No - Caffeine Use Caffeine Use: Reports: None - Alcohol Use Days Per Week of Alcohol Use: 1 Number of Drinks Per Day: 1 Total Drinks Per Week: 1 - Recreational Drug Use Recreational Drug Use: No - Living Situation & Occupation Living situation: Reports: Single, with Family Occupation: Disabled ED ROS GENERAL - Review of Systems Review Of Systems: See Below (See history of present illness) ED EXAM, NEURO - Physical Exam Exam: See Below (See history of present illness) Course - Vital Signs Last Recorded V/S: Last Vital Signs Temp 36.4 C 01/15/17 15:35 Pulse 60 01/15/17 15:35 Resp 16 01/15/17 15:35 BP 132/88 01/15/17 15:35 Pulse Ox 98 01/15/17 15:35 - Orders/Labs/Meds Labs: Laboratory Tests 01/15/17 01/15/17 Range/Units 11:50 11:50 WBC 4.37 (4.0-11.0) K/uL RBC 5.27 (4.50-5.90) M/uL Hgb 15.5 (13.0-17.0) g/dL Hct 46.2 (38.0-50.0) % MCV 87.7 (80.0-98.0) fL MCH 29.4 (27.0-32.0) pg MCHC 33.5 (31.0-37.0) g/dL RDW Std Deviation 44.7 (28.0-62.0) fl RDW Coeff of [place]ero 14 (11.0-15.0) % Plt Count 125 L (150-400) K/uL MPV 9.20 (7.40-12.00) fL Neut % (Auto) 69.5 (48.0-80.0) % Lymph % (Auto) 21.5 (16.0-40.0) % [place] % (Auto) 6.2 (0.0-15.0) % Eos % (Auto) 2.3 (0.0-7.0) % Baso % (Auto) 0.5 (0.0-1.5) % Neut # (Auto) 3.0 (1.4-5.7) K/uL Lymph # (Auto) 0.9 (0.6-2.4) K/uL [place] # (Auto) 0.3 (0.0-0.8) K/uL Eos # (Auto) 0.1 (0.0-0.7) K/uL Baso # (Auto) 0.0 (0.0-0.1) K/uL Nucleated RBC % 0.0 /100WBC Nucleated RBCs # 0 K/uL Sodium 140 (136-146) mmol/L Potassium 4.3 (3.5-5.1) mmol/L Chloride 103 (98-110) mmol/L Carbon Dioxide 28 (21-31) mmol/L BUN 15 (6.0-23.0) mg/dL Creatinine 1.1 (0.6-1.5) mg/dL Est Cr Clr Drug Dosing 68.45 mL/min Estimated GFR (MDRD) > 60.0 ml/min Glucose 95 (60-110) mg/dL Calcium 9.7 (8.8-10.8) mg/dL Total Bilirubin 0.6 (0.1-1.5) mg/dL AST 16 (5-40) IU/L ALT 15 (8-54) IU/L Alkaline Phosphatase 115 (40-150) Total Protein 7.1 (6.0-8.0) g/dL Albumin 4.5 (3.4-4.8) g/dL Globulin 2.6 (2.0-3.5) g/dL Albumin/Globulin Ratio 1.7 (1.3-2.8) Meds: Medications Discontinued Medications Generic Name Dose Route Start Last Admin Trade Name Freq PRN Reason Stop Dose Admin Sodium Chloride 1,000 mls @ 999 mls/hr 01/15/17 12:07 01/15/17 12:14 Normal Saline IV 01/15/17 13:07 999 mls/hr STAT ONE Administration Departure - Departure Time of Disposition: 16:09 Disposition: DC/Tfer to Acute Hospital 02 Condition: Good Clinical Impression: Weakness - Discharge Information Forms: ED Department Discharge
[2017-01-15 18:16] VITALS: BP 123/65
== END 2017-01-15 17:50 ==
LOC: MW.ED 11:12
DX: R53.1 Weakness (principal); I10 Essential (primary) hypertension; I25.2 Old myocardial infarction; J45.909 Unspecified asthma, uncomplicated; E11.9 Type 2 diabetes mellitus without complications; F41.9 Anxiety disorder, unspecified; F31.9 Bipolar disorder, unspecified; G30.9 Alzheimer's disease, unspecified; F02.80 Dementia in other diseases classified elsewhere, unspecified severity, without behavioral disturbance, psychotic disturbance, mood disturbance, and anxiety; Z95.0 Presence of cardiac pacemaker; Z85.47 Personal history of malignant neoplasm of testis; Z95.1 Presence of aortocoronary bypass graft; Z96.659 Presence of unspecified artificial knee joint; Z79.82 Long term (current) use of aspirin; Z79.899 Other long term (current) drug therapy; Z88.0 Allergy status to penicillin
CPT/HCPCS: 80053; 85025; 96360; 99285; J7040

== ENCOUNTER 2017-01-23 11:41 | Emergency (ER) | payer MEDICARE, MEDICAID ==
--- NOTE | 2017-01-23 12:00 | EDM.PDOC ---
ED HPI GENERAL MEDICAL PROBLEM - General Chief Complaint: Back Pain or Injury Stated Complaint: BACK PAIN Time Seen by Provider: 01/23/17 11:47 Source of Information: Reports: Patient, Family History Limitations: Reports: No Limitations - History of Present Illness INITIAL COMMENTS - FREE TEXT/NARRATIVE: History of present illness: []Patient was brought in by his nephew who is POA straight from the train [place] arriving from [facility] in [place]. He was hospitalized there after falling down some stairs suffering a back injury. Apparently he was hospitalized some time in the hospital and transferred to the [facility]. The son brought him here stating that they stopped all his pain medication and patient has been complaining of back pain continually. Review of systems: As per history of present illness and below otherwise all systems reviewed and negative. Past medical history: As per history of present illness and as reviewed below otherwise noncontributory. Surgical history: As per history of present illness and as reviewed below otherwise noncontributory. Social history: No reported history of drug or alcohol abuse. Family history: As per history of present illness and as reviewed below otherwise noncontributory. Physical exam: General: Well developed, well nourished in NAD HEENT: Atraumatic, normocephalic, pupils reactive, negative for conjunctival pallor or scleral icterus, mucous membranes moist, throat clear, neck supple, nontender, trachea midline. Lungs: Clear to auscultation, breath sounds equal bilaterally, chest nontender. Heart: S1S2, regular, negative for clicks, rubs, or JVD. Abdomen: Soft, nondistended, nontender. Negative for masses or hepatosplenomegaly. Negative for costovertebral tenderness. Pelvis: Stable nontender. Genitourinary: Deferred. Rectal: Deferred. Extremities: Atraumatic, negative for cords or calf pain. Neurovascular unremarkable. Neuro: Awake, alert, oriented. Cranial nerves II through XII unremarkable. Cerebellum unremarkable. Motor and sensory unremarkable throughout. Exam nonfocal. Diagnostics: [] Therapeutics: [] Impression: []Generalized weakness, low back pain Plan: []I will prescribe a walker, prescription for tramadol patient is to follow-up with Dr. Marsh Definitive disposition and diagnosis as appropriate pending reevaluation and review of above. Lower Back Pain Score (Numeric/FACES): 7 - Related Data Allergies Allergy/AdvReac Type Severity Reaction Status Date / Time Penicillins Allergy Rash Verified 01/23/17 11:52 Home Meds: Home Meds Nitroglycerin [Nitrostat] 0.4 mg SL Q5M PRN 11/28/15 [History] Omeprazole 20 mg PO DAILY 11/28/15 [History] Aspirin [Adult Low Dose Aspirin EC] 81 mg PO DAILY 01/31/16 [History] Umeclidinium [place] [Incruse Ellipta] 1 puff IH DAILY 01/31/16 [History] atorvaSTATin [Lipitor] 20 mg PO BEDTIME 01/31/16 [History] Amantadine [Symmetrel] 100 mg PO BID 04/27/16 [History] Fluticasone Propionate [Flovent HFA 220 MCG] 2 inh INH BID 04/27/16 [History] Tamsulosin [Flomax] 0.4 mg PO DAILY 08/19/16 [History] Lurasidone HCl [Latuda] 80 mg PO QPM 01/11/17 [History] Ondansetron [Zofran] 4 mg PO Q8H PRN 01/11/17 [History] lamoTRIgine 200 mg PO BID 01/11/17 [History] Gabapentin [Gralise] 300 mg PO TID #90 tab 01/12/17 [Rx] ClonazePAM [KlonoPIN] 0.5 mg PO Q4HR PRN 01/15/17 [History] traMADol [Ultram] 50 mg PO Q8H PRN #12 tablet 01/23/17 [Rx] Past Medical History - Past Health History Medical/Surgical History: Denies Medical/Surgical History HEENT History: Reports: None Cardiovascular History: Reports: Aneurysm, Arrhythmia, Hypertension, [place], Pacemaker, Other (See Below) Other Cardiovascular History: prior obstructive coronary disease noted on angiogram about four years ago by patient history Respiratory History: Reports: Asthma, Other (See Below) Other Respiratory History: on inhaler, but does not know why Gastrointestinal History: Reports: Other (See Below) Other Gastrointestinal History: liver disease Genitourinary History: Reports: None Musculoskeletal History: Reports: Back Pain, Chronic, Other (See Below) Other Musculoskeletal History: Chronic knee pain Neurological History: Reports: Alzheimers Disease, Other (See Below) Other Neuro History: being evaluated for parkinson's Psychiatric History: Reports: Anxiety, Bipolar, Depression Endocrine/Metabolic History: Reports: Diabetes, Type II Hematologic History: Reports: None Immunologic History: Reports: None Oncologic (Cancer) History: Reports: Other (See Below) Other Oncologic History: Testicular Cancer Dermatologic History: Reports: None - Infectious Disease History Infectious Disease History: Reports: Hepatitis C - Past Surgical History Head Surgeries/Procedures: Reports: None Cardiovascular Surgical History: Reports: Coronary Artery Bypass Male Surgical History: Reports: Other (See Below) Musculoskeletal Surgical History: Reports: Knee Replacement Social & Family History - Family History Family Medical History: Noncontributory - Tobacco Use Smoking Status *Q: Former Smoker Years of Tobacco use: 51 Packs/Tins Daily: 1.5 Used Tobacco, but Quit: Yes Month Tobacco Last Used: 0.3 Tobacco Use Comment: smoked for 52 years Second Hand Smoke Exposure: No - Caffeine Use Caffeine Use: Reports: None - Alcohol Use Days Per Week of Alcohol Use: 1 Number of Drinks Per Day: 1 Total Drinks Per Week: 1 - Recreational Drug Use Recreational Drug Use: No - Living Situation & Occupation Living situation: Reports: Single, with Family Occupation: Disabled ED ROS GENERAL - Review of Systems Review Of Systems: See Below (See history of present illness) ED EXAM,LOWER BACK PAIN/INJURY - Physical Exam Exam: See Below (See history of present illness) Course - Vital Signs Last Recorded V/S: Last Vital Signs Temp 36.5 C 01/23/17 11:52 Pulse 62 01/23/17 11:52 Resp 16 01/23/17 11:52 BP 116/65 01/23/17 11:52 Pulse Ox 99 01/23/17 11:52 Departure - Departure Time of Disposition: 12:13 Disposition: Home, Self-Care 01 Condition: Good Clinical Impression: Generalized weakness Low back pain Qualifiers: Chronicity: chronic Back pain laterality: unspecified Sciatica presence: without sciatica Qualified Code(s): M54.5 - Low back pain - Discharge Information Prescriptions: traMADol [Ultram] 50 mg PO Q8H PRN #12 tablet PRN Reason: Pain Referrals: Cameron Vázquez MD [Primary Care Provider] - Forms: ED Department Discharge Additional Instructions: The following information is given to patients seen in the emergency department who are being discharged to home. This information is to outline your options for follow-up care. We provide all patients seen in our emergency department with a follow-up referral. The need for follow-up, as well as the timing and circumstances, are variable depending upon the specifics of your emergency department visit. If you don't have a primary care physician on staff, we will provide you with a referral. We always advise you to contact your personal physician following an emergency department visit to inform them of the circumstance of the visit and for follow-up with them and/or the need for any referrals to a consulting specialist. The emergency department will also refer you to a specialist when appropriate. This referral assures that you have the opportunity for follow-up care with a specialist. All of these measure are taken in an effort to provide you with optimal care, which includes your follow-up. Under all circumstances we always encourage you to contact your private physician who remains a resource for coordinating your care. When calling for follow-up care, please make the office aware that this follow-up is from your recent emergency room visit. If for any reason you are refused follow-up, please contact the [facility] Emergency Department at and asked to speak to the emergency department charge nurse. Tramadol for pain as walker as directed with your primary care physician [facility] [address] [place] [id number]
[2017-01-23 12:49] VITALS: BP 133/71
== END 2017-01-23 12:47 | disposition home or self-care (01) ==
LOC: MW.ED 11:41
DX: M54.5 Low back pain (principal); R53.1 Weakness; I10 Essential (primary) hypertension; I25.2 Old myocardial infarction; J45.909 Unspecified asthma, uncomplicated; G30.9 Alzheimer's disease, unspecified; E11.9 Type 2 diabetes mellitus without complications; Z85.47 Personal history of malignant neoplasm of testis; Z95.1 Presence of aortocoronary bypass graft; Z96.659 Presence of unspecified artificial knee joint; Z87.891 Personal history of nicotine dependence; Z79.82 Long term (current) use of aspirin; Z79.899 Other long term (current) drug therapy; Z88.0 Allergy status to penicillin
CPT/HCPCS: 99283